=== PATIENT | female | born 1960 | race Caucasian/White ===

== ENCOUNTER 2016-05-25 15:53 | Inpatient (IN) | payer OTHER ==
[~2016-05-25] VITALS: Ht 165.1 cm; Wt 88.6 kg
[~2016-05-25 15:53] MED LIST: AMBI10TA; CYCL-36; TRAM50; WARF7.5; Z.0.NO CURRENT MEDS
[2016-05-25 15:54] VITALS: BP 170/105; PULSE 124; RESP 20; TEMP 98.2; O2SAT 94
[2016-05-25] MEDS ORDERED: MORPHINE SULFATE 4 MG/ML INJ IV PUSH ONE (19:30)
[2016-05-25] MEDS ORDERED: ONDANSETRON HCL 4 MG/2 ML VIAL IV PUSH ONE (19:30)
[2016-05-25 19:36] VITALS: O2SAT 96
[2016-05-25] MEDS ORDERED: TIZA4 PO (19:36)
[2016-05-25] MEDS ORDERED: PERC10TA27 PO (19:36)
[2016-05-25] MEDS ORDERED: ALPR.25 PO (19:36)
[2016-05-25] MEDS ORDERED: AMLO5 PO (19:36)
[2016-05-25] MEDS ORDERED: AMBI10TA PO (19:36)
--- NOTE | 2016-05-25 19:48 | PD ---
HPI Chief Complaint: Skin Problem Time Seen by Provider: 19:19 Travel History International Travel<30 days: No Contact w/Intl Traveler<30days: No Traveled to known affect area: No History of Present Illness HPI 56-year-old female complains of left shoulder pain. Patient started having left shoulder pain in the April. Patient was seen by personal physician and was diagnosed with osteoarthritis of the left A-C joint, shoulder impingement and rotator cuff tendinitis. Patient was seen by local physician Dr. Almazan and given Kenalog injection to left A-C joint on April 29. Patient states that he started having increasing pain and swelling to left shoulder since then. Patient was seen by personal physician and had MRI and x-ray done of the left shoulder which shows arthritic change. Patient was given pain medication and antibiotic including Augmentin and Medrol Dosepak. Patient states that she has low-grade fever at home up to 100.5. Patient was seen by personal physician again and referred to the ED to see Dr. Enriquez orthopedist consultation. Patient status post hip surgery by Dr. betts and knee surgery by Dr. Pitt in the past. Patient has history of hypertension and on medication for that. Patient stopped smoking a few months ago. Patient states the pain is severe sharp pain localized to left shoulder. Patient denies any pain radiation. Patient states that the pain is worse with left shoulder movement. On a scale of 1-10 the pain is a 10. PFSH Past Medical History Diminished Hearing: No Hypertension: Yes Influenza Vaccination: Yes ?: Not Social History Alcohol Use: Yes (rarely ) Tobacco Use: No Substance Use: No Allergies-Medications (Allergen,Severity, Reaction): Coded Allergies: Lortab (Verified Allergy, Mild, NAUSEA, 05/25/16) Percocet (Verified Allergy, Mild, HYPER AND ANXIOUS, 05/25/16) Reported Meds & Prescriptions Reported Meds & Active Scripts Active Reported Percocet (Oxycodone-Acetaminophen) 10-325 mg Tab 1 Tab PO Q4H PRN Zanaflex (Tizanidine HCl) 4 Mg Tab 4 Mg PO TID Xanax (Alprazolam) 0.25 Mg Tab 0.25 Mg PO Q4H PRN Norvasc (Amlodipine Besylate) 5 Mg Tab 5 Mg PO BID Ambien (Zolpidem Tartrate) 10 Mg Tab 10 Mg PO HS PRN Review of Systems General / Constitutional: No: Fever Eyes: No: Visual changes HENT: No: Headaches Cardiovascular: No: Chest Pain or Discomfort Respiratory: No: Shortness of Breath Gastrointestinal: No: Abdominal Pain Genitourinary: No: Dysuria Musculoskeletal: Positive: Pain Skin: No Rash Neurologic: No: Weakness Psychiatric: No: Depression Endocrine: No: Polydipsia Hematologic/Lymphatic: No: Easy Bruising Physical Exam Narrative GENERAL: Well-nourished, well-developed patient. SKIN: Warm and dry. HEAD: Normocephalic. EYES: No scleral icterus. No injection or drainage. NECK: Supple, trachea midline. No JVD or lymphadenopathy. CARDIOVASCULAR: Regular rate and rhythm without murmurs, gallops, or rubs. RESPIRATORY: Breath sounds equal bilaterally. No accessory muscle use. GASTROINTESTINAL: Abdomen soft, non-tender, nondistended. MUSCULOSKELETAL: No cyanosis, or edema. BACK: Nontender without obvious deformity. No CVA tenderness. Diffuse soft tissue swelling tenderness left shoulder joint especially superior aspect the left shoulder joint. Mild redness noted. No induration noted. Sensorimotor distally intact. Very Limited range of motion left shoulder secondary to pain. Data Data Last Documented VS Vital Signs Date Time Temp Pulse Resp B/P Pulse Ox O2 Delivery O2 Flow Rate FiO2 05/25/16 20:28 18 05/25/16 19:36 96 Room Air 05/25/16 15:54 98.2 124 170/105 Orders Electrocardiogram (05/25/16 19:28) Complete Blood Count With Diff (05/25/16 19:28) Comprehensive Metabolic Panel (05/25/16 19:28) Prothrombin Time / Inr (Pt) (05/25/16 19:28) Act Partial Throm Time (Ptt) (05/25/16 19:28) Blood Culture (05/25/16 19:28) C-Reactive Protein (Crp) (05/25/16 19:28) Urinalysis - C+S If Indicated (05/25/16 19:28) Westergren Sedimentation Rate (05/25/16 19:28) Chest, Single Ap (05/25/16 19:28) Iv Access Insert/Monitor (05/25/16 19:28) Ecg Monitoring (05/25/16 19:28) Oximetry (05/25/16 19:28) Morphine Inj (Morphine Inj) (05/25/16 19:30) Ondansetron Inj (Zofran Inj) (05/25/16 19:30) Sodium Chlor 0.9% 1000 Ml Inj (Ns 1000 M (05/25/16 19:30) Mri Joint Shoulder W&W/O Contr (05/25/16 ) Labs Laboratory Tests Test 05/25/16 19:30 White Blood Count 14.6 TH/MM3 Red Blood Count 4.78 MIL/MM3 Hemoglobin 14.2 GM/DL Hematocrit 42.7 % Mean Corpuscular Volume 89.4 FL Mean Corpuscular Hemoglobin 29.8 PG Mean Corpuscular Hemoglobin 33.3 % Concent Red Cell Distribution Width 13.4 % Platelet Count 283 TH/MM3 Mean Platelet Volume 7.4 FL Neutrophils (%) (Auto) 71.1 % Lymphocytes (%) (Auto) 22.5 % Monocytes (%) (Auto) 5.2 % Eosinophils (%) (Auto) 0.7 % Basophils (%) (Auto) 0.5 % Neutrophils # (Auto) 10.4 TH/MM3 Lymphocytes # (Auto) 3.3 TH/MM3 Monocytes # (Auto) 0.8 TH/MM3 Eosinophils # (Auto) 0.1 TH/MM3 Basophils # (Auto) 0.1 TH/MM3 CBC Comment DIFF FINAL Differential Comment Erythrocyte Sedimentation Rate 33 mm/hr Prothrombin Time 10.8 SEC Prothromb Time International 1.0 RATIO Ratio Activated Partial 24.8 SEC Thromboplast Time Sodium Level 136 MEQ/L Potassium Level 3.7 MEQ/L Chloride Level 99 MEQ/L Carbon Dioxide Level 28.2 MEQ/L Anion Gap 9 MEQ/L Blood Urea Nitrogen 17 MG/DL Creatinine 0.74 MG/DL Estimat Glomerular Filtration 81 ML/MIN Rate Random Glucose 128 MG/DL Calcium Level 8.7 MG/DL Total Bilirubin 0.6 MG/DL Aspartate Amino Transf 20 U/L (AST/SGOT) Alanine Aminotransferase 51 U/L (ALT/SGPT) Alkaline Phosphatase 81 U/L C-Reactive Protein 2.10 MG/DL Total Protein 7.7 GM/DL Albumin 3.1 GM/DL MDM Medical Decision Making Medical Screen Exam Complete: Yes Emergency Medical Condition: Yes Interpretation(s) 21:16 PM. CBC WBC 14.6. Sedimentation rate 33. CMP within normal limit. C- reactive protein 2.10. Differential Diagnosis Differential diagnosis including cellulitis, abscess, septic joint Narrative Course 56-year-old female with severe left shoulder pain. Status post steroid injection left A-C joint April 29. Vancomycin 1 g IV given. Montrell Quesada MD May 25, 2016 19:48
[2016-05-25] MEDS: SODIUM CHLOR 0.9% 1000 ML INJ 1,000 ML IV SCH (20:00)
[2016-05-25 20:06] LABS: AUTOMATED NEUTROPHIL # 10.4 TH/MM3 (1.8-7.7); BASOPHIL # 0.1 TH/MM3 (0-0.2); BASOPHIL % 0.5 % (0.0-2.0); EOSINOPHIL # 0.1 TH/MM3 (0-0.4); EOSINOPHIL % 0.7 % (0.0-4.0); HEMATOCRIT 42.7 % (35.0-46.0); HEMO FLAGS DIFF FINAL; LYMPH % 22.5 % (9.0-44.0); LYMPHOCYTE # 3.3 TH/MM3 (1.0-4.8); MEAN CELL VOLUME 89.4 FL (80.0-100.0); MEAN CORPUSCULAR HEMOGLOBIN 29.8 PG (27.0-34.0); MEAN CORPUSCULAR HGB CONC 33.3 % (32.0-36.0); MONO % 5.2 % (0.0-8.0); NEUT % 71.1 % (16.0-70.0); PLATELET COUNT 283 TH/MM3 (150-450); RED BLOOD COUNT 4.78 MIL/MM3 (4.00-5.30); RED CELL DISTRIBUTION WIDTH 13.4 % (11.6-17.2); WHITE BLOOD COUNT 14.6 TH/MM3 (4.0-11.0)
[2016-05-25 20:23] LABS: ALKALINE PHOSPHATASE 81 U/L (45-117); ALT (GPT) 51 U/L (10-53); ANION GAP 9 MEQ/L (5-15); AST (GOT) 20 U/L (15-37); BICARBONATE 28.2 MEQ/L (21.0-32.0); BLOOD UREA NITROGEN 17 MG/DL (7-18); CHLORIDE 99 MEQ/L (98-107); GLOMERULAR FILTRATION RATE 81 ML/MIN (>89); POTASSIUM 3.7 MEQ/L (3.5-5.1); SODIUM (NA) 136 MEQ/L (136-145); TOTAL BILIRUBIN ADULT 0.6 MG/DL (0.2-1.0)
[2016-05-25 20:25] LABS: APTT (PATIENT) 24.8 SEC (24.3-30.1); PROTHROMBIN TIME - PATIENT 10.8 SEC (9.8-11.6)
[2016-05-25] MEDS ORDERED: VANCOMYCIN INJ 1,000 MG in SODIUM CHLOR 0.9% 250 ML INJ 250 ML IV ONE (21:30)
[2016-05-25] MEDS ORDERED: SODIUM CHLORIDE 0.9% FLUSH 5 ML FLUSH IVF PRN (21:30)
--- NOTE | 2016-05-25 21:33 | RADRPT ---
EXAM DATE/TIME: 05/25/2016 19:40 [facility] COMPARISON: No previous studies available for comparison. INDICATIONS : Short of breath MEDICAL HISTORY : None. SURGICAL HISTORY : None. ENCOUNTER: Initial ACUITY: 1 day PAIN SCORE: 0/10 LOCATION: Bilateral chest FINDINGS: A single view of the chest demonstrates the lungs to be symmetrically aerated without evidence of mas s, infiltrate or effusion. The cardiomediastinal contours are unremarkable. Osseous structures are intact. CONCLUSION: Normal examination for a patient of this age. Amrik Burkett MD on May 25, 2016 at 21:31 Board Certified Radiologist. This report was verified electronically.
--- NOTE | 2016-05-25 21:35 | HHI.HP ---
HPI Service [facility] Hospitalists Primary Care Physician Yamil Felix, DO Admission Diagnosis left shoulder cellulitis. Rule out septic joint. Chief Complaint: Left shoulder pain with questionable infection Travel History International Travel<30 Days: No Contact w/Intl Traveler <30 Da: No Traveled to Known Affected Are: No History of Present Illness 56-year-old female complains of left shoulder pain. Patient started having left shoulder pain in the April 2016. Patient was seen by personal physician and was diagnosed with osteoarthritis of the left A-C joint, shoulder impingement and rotator cuff tendinitis. She was reportedly given injection into left AC joint by Dr Lee at [facility] on 04/29/16. Patient was seen by local sports medicine physician Dr. Almazan and given Kenalog injection to post left shoulder on May 07, 2016. Patient was seen by personal physician and had MRI and x-ray done of the left shoulder which mistreated before meals osteoarthritis and possible biceps tenosynovitis on May 06, 2016. Patient was given pain medication and antibiotic including Augmentin and Medrol Dosepak. Patient states that she has low-grade fever at home up to 100.5 over the last 2 days.. Patient was seen by personal physician again and referred to the ED to see Dr. Enriquez orthopedist consultation for possible septic joint. Patient states the pain is severe sharp pain localized to left shoulder. Patient denies any pain radiation. Patient states that the pain is worse with left shoulder movement. On a scale of 1-10 the pain is a 10. Denies chest pain or shortness of breath. Review of Systems Constitutional: COMPLAINS OF: Fatigue, Fever Endocrine: DENIES: Abnorml menstrual pattern, Heat/cold intolerance, Polydipsia , Polyuria, Polyphagia Eyes: DENIES: Blurred vision, Diplopia, Eye inflammation, Eye pain, Vision loss , Photosensitivity, Double Vision Ears, nose, mouth, throat: DENIES: Tinnitus, Hearing loss, Vertigo, Nasal discharge, Oral lesions, Throat pain, Hoarseness, Ear Pain, Running Nose, Epistaxis, Sinus Pain, Toothache, Odynophagia Respiratory: DENIES: Apneas, Cough, Snoring, Wheezing, Hemoptysis, Sputum production, Shortness of breath Cardiovascular: DENIES: Chest pain, Palpitations, Syncope, Dyspnea on Exertion , PND, Lower Extremity Edema, Orthopnea, Claudication Gastrointestinal: DENIES: Abdominal pain, Black stools, Bloody stools, BRB per rectum, Constipation, Diarrhea, GERD, Nausea, Reflux, Vomiting, Difficulty Swallowing, Anorexia, See HPI Musculoskeletal: COMPLAINS OF: Joint pain, Stiffness Hematologic/lymphatic: DENIES: Bruising, Lymphadenopathy Immunologic/allergic: DENIES: Eczema, Urticaria Neurologic: DENIES: Abnormal gait, Headache, Localized weakness, Paresthesias, Seizures, Speech Problems, Tremor, Poor Balance Psychiatric: COMPLAINS OF: Anxiety Past Family Social History Past Medical History Anxiety Cervical degenerative disc disease Hypertension Osteoarthritis of the acromioclavicular joints Rotator cuff tendinitis on the left Past Surgical History Left knee arthroscopy Right total hip replacement Reported Medications Percocet (Oxycodone-Acetaminophen) 10-325 mg Tab 1 Tab PO Q4H PRN Zanaflex (Tizanidine HCl) 4 Mg Tab 4 Mg PO TID Xanax (Alprazolam) 0.25 Mg Tab 0.25 Mg PO Q4H PRN Norvasc (Amlodipine Besylate) 5 Mg Tab 5 Mg PO BID Ambien (Zolpidem Tartrate) 10 Mg Tab 10 Mg PO HS PRN Allergies: Coded Allergies: Lortab (Verified Allergy, Mild, NAUSEA, 05/25/16) Percocet (Verified Allergy, Mild, HYPER AND ANXIOUS, 05/25/16) Family History Noncontributory Social History No tobacco in 8 mos, prior to that smoked cigarettes for appx 35 yrs. Occasional EtOH use. 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 Has been in area for over 20 yrs. Physical Exam Vital Signs Vital Signs Date Time Temp Pulse Resp B/P Pulse Ox O2 Delivery O2 Flow Rate FiO2 05/25/16 20:28 18 05/25/16 19:36 96 Room Air 05/25/16 15:54 98.2 124 20 170/105 94 Room Air Physical Exam GENERAL: This is a well-nourished, obese, well-developed patient, in no apparent distress. SKIN: Left shoulder dorsally with erythematous patch with edema and TTP. HEAD: Atraumatic. Normocephalic. No temporal or scalp tenderness. EYES: Pupils equal round and reactive. Extraocular motions intact. No scleral icterus. No injection or drainage. ENT: Nose without bleeding, purulent drainage or septal hematoma. Throat without erythema, tonsillar hypertrophy or exudate. Uvula midline. Airway patent. NECK: Trachea midline. No JVD or lymphadenopathy. Spasm left paracervical area. CARDIOVASCULAR: Regular rate and rhythm without murmurs, gallops, or rubs. RESPIRATORY: Clear to auscultation. Breath sounds equal bilaterally. No wheezes , rales, or rhonchi. GASTROINTESTINAL: Abdomen soft, non-tender, nondistended. No hepato-splenomegaly , or palpable masses. No guarding. MUSCULOSKELETAL: Extremities without clubbing, cyanosis. Left shoulder with + apprehension test and TTP over left AC joint. TTP left proximal biceps with posterior edema. Decreased ROM left shoulder due to edema/pain. Could not perform lift off test due to pain with internal rotation. No calf tenderness.. NEUROLOGICAL: Awake and alert. Cranial nerves II through XII intact. Motor and sensory grossly within normal limits. Five out of 5 muscle strength in all muscle groups. Normal speech. Laboratory Laboratory Tests Test 05/25/16 19:30 White Blood Count 14.6 Red Blood Count 4.78 Hemoglobin 14.2 Hematocrit 42.7 Mean Corpuscular Volume 89.4 Mean Corpuscular Hemoglobin 29.8 Mean Corpuscular Hemoglobin 33.3 Concent Red Cell Distribution Width 13.4 Platelet Count 283 Mean Platelet Volume 7.4 Neutrophils (%) (Auto) 71.1 Lymphocytes (%) (Auto) 22.5 Monocytes (%) (Auto) 5.2 Eosinophils (%) (Auto) 0.7 Basophils (%) (Auto) 0.5 Neutrophils # (Auto) 10.4 Lymphocytes # (Auto) 3.3 Monocytes # (Auto) 0.8 Eosinophils # (Auto) 0.1 Basophils # (Auto) 0.1 CBC Comment DIFF FINAL Differential Comment Erythrocyte Sedimentation Rate 33 Prothrombin Time 10.8 Prothromb Time International 1.0 Ratio Activated Partial 24.8 Thromboplast Time Sodium Level 136 Potassium Level 3.7 Chloride Level 99 Carbon Dioxide Level 28.2 Anion Gap 9 Blood Urea Nitrogen 17 Creatinine 0.74 Estimat Glomerular Filtration 81 Rate Random Glucose 128 Calcium Level 8.7 Total Bilirubin 0.6 Aspartate Amino Transf 20 (AST/SGOT) Alanine Aminotransferase 51 (ALT/SGPT) Alkaline Phosphatase 81 C-Reactive Protein 2.10 Total Protein 7.7 Albumin 3.1 Date/Time Procedure Status Source Growth 05/25/16 19:38 Aerobic Blood Culture Received Blood Peripheral Pending 05/25/16 19:38 Anaerobic Blood Culture Received Blood Peripheral Pending Result Diagram: 05/25/16192905/25/161929 Imaging Last 72 hours Impressions Chest X-Ray 05/25/161927 Signed Impressions: Service Date/Time: Wednesday, May 25, 2016 19:40 - CONCLUSION: Normal examination for a patient of this age. Amrik Burkett MD Assessment and Plan Problem List: (1) Acromioclavicular joint arthritis Status: Acute Plan: Will have ortho see pt. May have septic joint/bursa. Given abx and pain rx. MRI pending. (2) Cellulitis Status: Acute Plan: abx given. Will follow. Does not appear toxic. Sed rate noted. (3) Hypertension Status: Chronic Plan: continue rx. Clonidine prn. (4) Anxiety Status: Chronic Plan: xanax prn Code Status full Discussed Condition With patient, Dr Quesada Physician Certification 2 Midnight Certification Type: Admission for Inpatient Services Order for Inpatient Services The services are ordered in accordance with Medicare regulations or non- Medicare payer requirements, as applicable. In the case of services not specified as inpatient-only, they are appropriately provided as inpatient services in accordance with the 2-midnight benchmark. Estimated LOS (days): 2 days is the estimated time the patient will need to remain in the hospital, assuming treatment plan goals are met and no additional complications. Post-Hospital Plan: Home Chencho Marti PhD May 25, 2016 21:35
[2016-05-25] MEDS ORDERED: cloNIDine HCL 0.1 MG TAB PO PRN (21:45)
[2016-05-25] MEDS ORDERED: ONDANSETRON HCL 4 MG/2 ML VIAL IV PUSH PRN (21:45)
[2016-05-25] MEDS ORDERED: ALPRAZolam 0.25 MG TAB PO PRN (21:45)
[2016-05-25] MEDS ORDERED: GADODIAMIDE PF 287 MG/ML 20 ML VIAL (for RAD MRI) IV PUSH ONE (22:14)
--- NOTE | 2016-05-25 23:18 | RADRPT ---
EXAM DATE/TIME: 05/25/2016 21:58 [facility] COMPARISON: No previous studies available for comparison. INDICATIONS : Abscess. Status post left a.c. joint steroid injection on April 29. CONTRAST: 18 cc Omniscan (gadodiamide) IV MEDICAL HISTORY : Kenlog injections into left shoulder SURGICAL HISTORY : Total knee replacement, left. Right hip replacment. ENCOUNTER: Initial ACUITY: 1 month PAIN SCORE: 9/10 LOCATION: Left anterior shoulder TECHNIQUE: Multiplanar, multisequence MRI examination was performed with and without contrast. FINDINGS: There is good alignment of the bony structures of the shoulder joint. There is normal signal intensit y within the bone marrow of the proximal humerus and scapula. Degenerative changes are seen at the a. c. joint. However, multiple too numerous to count fluid collections are seen throughout the soft tiss ues that surround the shoulder joint characteristics of soft tissue abscesses. There is an abscess ju st superior to the a.c. joint measuring 3.5 cm. There is an abscess in the subscapularis muscle measu ring 2.8 cm. There appears to be a large fluid collection/abscess in the soft tissues posterior to th e shoulder measuring 15.1 cm in length. Multiple small abscesses appear to be along the left chest wa ll at the level of the axilla. There is no evidence of bone marrow edema in the bony structures to prasad ggest osteomyelitis. No significant joint effusion is demonstrated. The rotator cuff appears to be gr ossly intact. CONCLUSION: 1. Multiple too numerous to count soft tissue abscesses are seen in the soft tissues that surround th e shoulder joint. The largest abscess appears to be positioned posterior to the shoulder and scapula in the soft tissues measuring at least 15.1 cm in length. 2. Multiple small abscesses are also seen along the left chest wall at the level of the axilla extend ing inferiorly. 3. No evidence of osteomyelitis is demonstrated at this time. Mark Anthony Mar MD on May 25, 2016 at 23:06 Board Certified Radiologist. This report was verified electronically.
[2016-05-25 23:47] VITALS: BP 167/80; PULSE 110; RESP 18; O2SAT 99
[2016-05-26] LABS: BACTERIA, URINE RARE /hpf; BLOOD, URINE TRACE (NEG); COMMENT (UR) CULT NOT INDICATED; CULTURE IF INDICATED CULT NOT INDICATED; GLUCOSE,URINE NEG (NEG); HYALINE CAST, URINE 2 /lpf (RARE); KETONE, URINE NEG (NEG); MUCUS URINE MANY /lpf (OCC); NITRITE,URINE NEG (NEG); SQUAMOUS EPITHELIAL CELL URINE 4 /hpf (0-5); URINE COLOR YELLOW (YELLW/STRAW)
[2016-05-26 02:06] VITALS: BP 152/75; PULSE 88; RESP 18; O2SAT 99
[2016-05-26] MEDS: MORPHINE SULFATE 4 MG/ML INJ IV PUSH PRN ×2 (02:52→09:33)
[2016-05-26] MEDS: ZOLPIDEM TARTRATE 10 MG TAB PO PRN ×2 (03:00→19:58)
[2016-05-26] MEDS: SODIUM CHLOR 0.9% 1000 ML INJ 1,000 ML IV SCH ×4 (03:30→19:59)
[2016-05-26 05:40] LABS: AUTOMATED NEUTROPHIL # 7.2 TH/MM3 (1.8-7.7); BASOPHIL % 0.2 % (0.0-2.0); EOSINOPHIL # 0.2 TH/MM3 (0-0.4); EOSINOPHIL % 1.6 % (0.0-4.0); HEMATOCRIT 36.3 % (35.0-46.0); HEMO FLAGS DIFF FINAL; LYMPH % 26.6 % (9.0-44.0); LYMPHOCYTE # 2.9 TH/MM3 (1.0-4.8); MEAN CELL VOLUME 89.5 FL (80.0-100.0); MEAN CORPUSCULAR HEMOGLOBIN 30.8 PG (27.0-34.0); MEAN CORPUSCULAR HGB CONC 34.4 % (32.0-36.0); NEUT % 66.6 % (16.0-70.0); PLATELET COUNT 229 TH/MM3 (150-450); RED BLOOD COUNT 4.05 MIL/MM3 (4.00-5.30); RED CELL DISTRIBUTION WIDTH 13.6 % (11.6-17.2); WHITE BLOOD COUNT 10.8 TH/MM3 (4.0-11.0)
[2016-05-26 07:33] VITALS: BP 143/77; PULSE 98; RESP 20; O2SAT 92
[2016-05-26] MEDS ORDERED: SODIUM CHLORIDE 0.9% FLUSH 5 ML FLUSH IVF SCH (09:00)
[2016-05-26 09:29] VITALS: BP 146/83; PULSE 105; RESP 20; O2SAT 95
[2016-05-26] MEDS: amLODIPine BESYLATE 5 MG TAB PO SCH ×2 (09:33→19:59)
[2016-05-26] MEDS ORDERED: VANCOMYCIN INJ 1,000 MG in SODIUM CHLOR 0.9% 250 ML INJ 250 ML IV SCH (11:00)
[2016-05-26] MEDS ORDERED: Vancomycin Consult Pharmacy 1 EA OTHER SCH (11:00)
--- NOTE | 2016-05-26 11:04 | HHI.PR ---
Subjective Remarks no distress Objective Vitals nad heart reg lung cta abd s/nt ext no edema Vital Signs Date Time Temp Pulse Resp B/P Pulse Ox O2 Delivery O2 Flow Rate FiO2 05/26/16 09:29 105 20 146/83 95 Room Air 05/26/16 07:33 98 20 143/77 92 05/26/16 03:33 18 05/26/16 02:06 88 18 152/75 99 Room Air 05/25/16 23:47 110 18 167/80 99 Room Air 05/25/16 20:28 18 05/25/16 19:36 96 Room Air 05/25/16 15:54 98.2 124 20 170/105 94 Room Air Result Diagram: 05/26/16 0500 05/25/16 1930 Other Results Laboratory Tests Test 05/25/16 05/25/16 05/26/16 00:40 19:30 05:00 Urine Color YELLOW Urine Turbidity HAZY Urine pH 5.0 Urine Specific [place] 1.031 Urine Protein 100 mg/dL Urine Glucose (UA) NEG mg/dL Urine Ketones NEG mg/dL Urine Occult Blood TRACE Urine Nitrite NEG Urine Bilirubin NEG Urine Urobilinogen LESS THAN 2.0 MG/DL Urine Leukocyte Esterase NEG Urine RBC 3 /hpf Urine WBC 5 /hpf Urine Squamous Epithelial 4 /hpf Cells Urine Amorphous Sediment RARE Urine Bacteria RARE /hpf Urine Hyaline Casts 2 /lpf Urine Mucus MANY /lpf Microscopic Urinalysis Comment CULT NOT INDICATED White Blood Count 14.6 TH/MM3 10.8 TH/MM3 Red Blood Count 4.78 MIL/MM3 4.05 MIL/MM3 Hemoglobin 14.2 GM/DL 12.5 GM/DL Hematocrit 42.7 % 36.3 % Mean Corpuscular Volume 89.4 FL 89.5 FL Mean Corpuscular Hemoglobin 29.8 PG 30.8 PG Mean Corpuscular Hemoglobin 33.3 % 34.4 % Concent Red Cell Distribution Width 13.4 % 13.6 % Platelet Count 283 TH/MM3 229 TH/MM3 Mean Platelet Volume 7.4 FL 7.7 FL Neutrophils (%) (Auto) 71.1 % 66.6 % Lymphocytes (%) (Auto) 22.5 % 26.6 % Monocytes (%) (Auto) 5.2 % 5.0 % Eosinophils (%) (Auto) 0.7 % 1.6 % Basophils (%) (Auto) 0.5 % 0.2 % Neutrophils # (Auto) 10.4 TH/MM3 7.2 TH/MM3 Lymphocytes # (Auto) 3.3 TH/MM3 2.9 TH/MM3 Monocytes # (Auto) 0.8 TH/MM3 0.5 TH/MM3 Eosinophils # (Auto) 0.1 TH/MM3 0.2 TH/MM3 Basophils # (Auto) 0.1 TH/MM3 0.0 TH/MM3 CBC Comment DIFF FINAL DIFF FINAL Differential Comment Erythrocyte Sedimentation Rate 33 mm/hr Prothrombin Time 10.8 SEC Prothromb Time International 1.0 RATIO Ratio Activated Partial 24.8 SEC Thromboplast Time Sodium Level 136 MEQ/L Potassium Level 3.7 MEQ/L Chloride Level 99 MEQ/L Carbon Dioxide Level 28.2 MEQ/L Anion Gap 9 MEQ/L Blood Urea Nitrogen 17 MG/DL Creatinine 0.74 MG/DL Estimat Glomerular Filtration 81 ML/MIN Rate Random Glucose 128 MG/DL Calcium Level 8.7 MG/DL Total Bilirubin 0.6 MG/DL Aspartate Amino Transf 20 U/L (AST/SGOT) Alanine Aminotransferase 51 U/L (ALT/SGPT) Alkaline Phosphatase 81 U/L C-Reactive Protein 2.10 MG/DL Total Protein 7.7 GM/DL Albumin 3.1 GM/DL Imaging Last Impressions Chest X-Ray 05/25/161927 Signed Impressions: Service Date/Time: Wednesday, May 25, 2016 19:40 - CONCLUSION: Normal examination for a patient of this age. Amrik Burkett MD Shoulder MRI 05/25/16 0000 Signed Impressions: Service Date/Time: Wednesday, May 25, 2016 21:58 - CONCLUSION: 1. Multiple too numerous to count soft tissue abscesses are seen in the soft tissues that surround the shoulder joint. The largest abscess appears to be positioned posterior to the shoulder and scapula in the soft tissues measuring at least 15.1 cm in length. 2. Multiple small abscesses are also seen along the left chest wall at the level of the axilla extending inferiorly. 3. No evidence of osteomyelitis is demonstrated at this time. Mark Anthony Mar MD Last 72 hours Impressions Chest X-Ray 05/25/161927 Signed Impressions: Service Date/Time: Wednesday, May 25, 2016 19:40 - CONCLUSION: Normal examination for a patient of this age. Amrik Burkett MD A/P Problem List: (1) Cellulitis Status: Acute Plan: - Pt has been having issues left shoulder pain in the April 2016. - Patient was diagnosed with osteoarthritis of the left A-C joint, shoulder impingement and rotator cuff tendinitis. - She was reportedly given injection into left AC joint by Dr Lee at [facility] on 04/29/16. - Patient was seen by local sports medicine physician Dr. Almazan and given Kenalog injection to post left shoulder on May 07, 2016. - Patient was seen by her PCP and had MRI without contrast of the left shoulder on 05/06/16 which noted degenerative changes at the AC jointm questionable mild biceps tenosynovitis - Patient was given pain medication and antibiotic including Augmentin and Medrol Dosepak. - She has had low-grade fever at home up to 100.5 over the last 2 days - MRI Left shoulder (05/26) --> Multiple too numerous to count soft tissue abscesses are seen in the soft tissues that surround the shoulder joint. The largest abscess appears to be positioned posterior to the shoulder and scapula in the soft tissues measuring at least 15.1 cm in length. Multiple small abscesses are also seen along the left chest wall at the level of the axilla extending inferiorly. No evidence of osteomyelitis is demonstrated at this time. - Pt was given Vancomycin in the ER and this will be continued - Orthopedic surgery has been consulted. - No fever since admission. WBC count stable. - Pt with an elevated ESR of 33 - Will discuss with IR whether or not any of these fluid collections can be drained by IR or not. - DVT prophylaxis (2) Hypertension Status: Chronic Plan: - Home meds continued - Clonidine prn. (3) Anxiety Status: Chronic Plan: - Xanax prn Assessment and Plan Patient examined. Assessment and plan formulated with Kate Estes PA-C. I agree with the above. left shoulder with abscesses. probably related to repeated injections. going to OR today for drainage. f/u cx. cont abx. Kate Estes May 26, 2016 11:04 Aden Finley MD May 26, 2016 21:54
[2016-05-26] MEDS ORDERED: ceFAZolin 2 GM PREMIX 50 ML ONE (12:26)
[2016-05-26] MEDS ORDERED: GENTAMICIN SULFATE 80 MG/2 ML VIAL ONE (12:27)
[2016-05-26] MEDS ORDERED: NEOSTIGMINE 3 MG/3 ML SYR IV ONE (13:00)
[2016-05-26] MEDS ORDERED: PROPOFOL 200 MG/20 ML AMP IV ONE (13:00)
[2016-05-26] MEDS ORDERED: ePHEDrine/NS 50 MG/5 ML SYR IV ONE (13:00)
[2016-05-26] MEDS ORDERED: ONDANSETRON HCL 4 MG/2 ML VIAL IV PUSH ONE (13:00)
[2016-05-26] MEDS ORDERED: DEXAMETHASONE SOD PHOS 4 MG/ML VIAL ONE (13:05)
[2016-05-26] MEDS ORDERED: MIDAZOLAM HCL 2 MG/2 ML VIAL ONE (13:05)
[2016-05-26] MEDS ORDERED: fentaNYL CITRATE 250 MCG/5 ML AMP ONE ×2 (13:40→15:58)
[2016-05-26] MEDS ORDERED: ACETAMINOPHEN 1000 MG/100 ML VIAL IV ONE (13:40)
[2016-05-26] MEDS: VANCOMYCIN INJ 1,500 MG in SODIUM CHLORID 0.9% 500 ML INJ 500 ML IV SCH (15:04)
[2016-05-26] MEDS ORDERED: Post-op Orders (for Pharmacy) MISC XX ONE (15:30)
[2016-05-26] MEDS ORDERED: diphenhydrAMINE HCL 25 MG CAP PO PRN (15:30)
[2016-05-26] MEDS ORDERED: SODIUM CHLORIDE 0.9% FLUSH 5 ML FLUSH IVF PRN (15:30)
[2016-05-26] MEDS ORDERED: DO NOT ADM ANY ANTICOAGULANT DRUGS XX PRN (15:49)
[2016-05-26] MEDS ORDERED: *morphine SULFATE 8 MG/ML PERIprocedure ONLY ONE ×2 (16:05→16:20)
[2016-05-26] MEDS ORDERED: *RESP: ALBUTEROL 2.5 MG/3 ML NEB (PRN) PERIprocedural Use ONLY NEB ONE (16:07)
--- NOTE | 2016-05-26 17:04 | MB ---
cc: GREGJAMIL DATE OF CONSULTATION: 05/26/2016 REASON FOR CONSULTATION: 1. Left shoulder AC joint infection. 2. Left shoulder abscess. CONSULTING PHYSICIAN Dr. Aden Finley. HISTORY Sarah is a 56-year-old female who presented emergency room complaining of left shoulder pain. She began developing pain in April 2016. She was felt to have left shoulder AC joint arthritis and shoulder impingement. She was given a left shoulder AC joint injection at [facility] on 04/29/2016. She also had a steroid injection of her posterior shoulder around May 07, 2016. She had she presented emergency room with fevers, increased pain. MRI was done revealing a large abscess of the posterior shoulder. She also had an abscess around the left AC joint. She is currently awake and emergency department. Only complaints are her left shoulder. Pain is worse with movement and is improved with rest. She denies any falls traumatic injuries. PAST MEDICAL HISTORY/ILLNESSES 1. Degenerative disc disease 2. Hypertension. 3. Osteoarthritis. 4. Rotator cuff tendonitis. SURGERIES 1. Right total hip arthroplasty 2. Left antroscopy MEDICATIONS 1. Percocet flexes annex. 2. Norvasc and median allergies would have a Percocet. SOCIAL HISTORY The patient quit smoking a year. It is a month ago. She drinks alcohol occasionally. She works to the [employer]. REVIEW OF SYSTEMS The patient denies headache, visual changes. Chest pain, abdominal pain, nausea or recent weight loss or numbness and extremities. She has moderate fevers. She complains of left shoulder pain. She has chronic neck pain. PHYSICAL EXAMINATION The patient has a well-developed, well-nourished 48-year female who is moderately overweight. She is awake, alert. She is alert and x3. Vital signs: Temperature 98.2, pulse 105, respirations 20, blood pressure 146/83, O2 sat 95% on room air. HEAD, EYES, EARS, NOSE, AND THROAT: Head: The patient is normocephalic. Pupils are equal. NECK: Soft, nontender. Trachea is midline. ABDOMEN: Soft, nontender, nondistended. EXTREMITIES: Examination of left arm reveals significant swelling around the posterior shoulder. There is a flexion area along the posterior scapula. She is very tender progression over the AC joint. She has pain with any shoulder motion. She has no pain with elbow or wrist or hand motion. Skin is intact. Radial arteries, pulse palpable. Sensation is intact to radial and median nerves. The patient's she has good cap refill fingers. Examination of right arm reveals no pain with shoulder or wrist motion. She has intact sensation in all fingers. She has good cap refill fingers. Skin is intact. Reporting Specialist strength. EXTREMITIES: Examination of bilateral lower extremities reveals no pain with hip, knee or ankle motion. SKIN: Skin is intact. Dorsalis pedis pulses palpable. Sensation is grossly intact both feet. MRI of left shoulder was reviewed. The patient has a large area of fluid along the posterior scapula. This appears to be consistent with an abscess. She also has a fluid section of the AC joint consistent with a she joint infection. IMPRESSION 1. Posterior left shoulder abscess. 2. Left shoulder AC joint infection. PLAN The option discussed with the patient this point I would recommend left AC joint. The arthrotomy with irrigation debridement. Also recommend irrigation debridement of the posterior scapular abscess. Risks of surgery include bleeding, infection, injury to his blood vessels, recurrent infection, need for further surgery as well as medical complications including blood clot, stroke, heart attack and . She understands that she can have weakness or numbness of her hand. I will plan on surgery today. A mid-level provider in my office (nurse practitioner or physician administrative assistant office manager) may see this patient on follow-up visits and continue to implement the objectives of this plan including: Starting or adjusting medications, injections , cast application, orthotics, brace application, physical therapy, radiological studies (including x-ray, MRI, CT, ultrasound, bone scan), vascular studies, neurologic studies, specialist consultation, and proceeding with surgical management, as appropriate. MD MINA Bustamante/anel /3:18 PM /4:36 PM MELVI
[2016-05-26] MEDS: SODIUM CHLORIDE 0.9% FLUSH 5 ML FLUSH IVF SCH (19:58)
[2016-05-26 20:00] VITALS: BP 135/84; PULSE 101; RESP 18; TEMP 97.6; O2SAT 95
--- NOTE | 2016-05-26 20:15 | EKG ---
Date Performed: 05/25/2016 Time Performed: 19:52:34 PTAGE: 56 years EKG: SINUS TACHYCARDIA Nonspecific ST-T wave changes. When compared to previous tracing, the pat ient is now Tachycardic. ABNORMAL ECG PREVIOUS TRACING : 12/08/2006 09.02 DOCTOR: Page Zimmer Interpretating Date/Time 05/26/2016 20:14:06
[2016-05-26 21:37] VITALS: O2SAT 95
[2016-05-27] VITALS (7 sets, daily range): BP systolic 119–138; BP diastolic 66–84; PULSE 97–101; RESP 18–20; TEMP 97.6–99.2; O2SAT 95–100
[2016-05-27] MEDS: VANCOMYCIN INJ 1,500 MG in SODIUM CHLORID 0.9% 500 ML INJ 500 ML IV SCH ×2 (00:53→15:20)
[2016-05-27] MEDS: MORPHINE SULFATE 4 MG/ML INJ IV PUSH PRN ×2 (00:54→15:29)
[2016-05-27 06:54] LABS: BASOPHIL % 0.3 % (0.0-2.0); EOSINOPHIL % 0.1 % (0.0-4.0); HEMATOCRIT 34.6 % (35.0-46.0); HEMO FLAGS DIFF FINAL; LYMPH % 12.2 % (9.0-44.0); LYMPHOCYTE # 1.5 TH/MM3 (1.0-4.8); MEAN CELL VOLUME 90.8 FL (80.0-100.0); MEAN CORPUSCULAR HEMOGLOBIN 29.9 PG (27.0-34.0); MEAN CORPUSCULAR HGB CONC 32.9 % (32.0-36.0); MONO % 3.9 % (0.0-8.0); NEUT % 83.5 % (16.0-70.0); PLATELET COUNT 220 TH/MM3 (150-450); RED BLOOD COUNT 3.81 MIL/MM3 (4.00-5.30); RED CELL DISTRIBUTION WIDTH 13.5 % (11.6-17.2); WHITE BLOOD COUNT 11.9 TH/MM3 (4.0-11.0)
[2016-05-27 07:15] LABS: BICARBONATE 28.3 MEQ/L (21.0-32.0); MAGNESIUM 1.7 MG/DL (1.5-2.5); POTASSIUM 3.6 MEQ/L (3.5-5.1)
[2016-05-27] MEDS: SODIUM CHLORIDE 0.9% FLUSH 5 ML FLUSH IVF SCH ×2 (09:19→21:14)
[2016-05-27] MEDS: amLODIPine BESYLATE 5 MG TAB PO SCH ×2 (09:19→21:14)
--- NOTE | 2016-05-27 10:28 | HHI.PR ---
Subjective Remarks Pt reports that her pain is better today since surgery She denies any nausea/vomiting, abd pain, chest pain, fevers or chills. Objective Vitals Vital Signs Date Time Temp Pulse Resp B/P Pulse Ox O2 Delivery O2 Flow Rate FiO2 05/27/16 09:52 97 21 05/27/16 08:00 97.6 97 20 134/73 95 05/27/16 04:00 98.4 100 18 123/66 95 05/27/16 00:00 98.6 99 18 135/82 96 05/26/16 21:37 95 21 05/26/16 20:00 97.6 101 18 135/84 95 05/26/16 16:45 98.2 95 12 142/90 95 Nasal Cannula 2 05/26/16 16:30 94 12 145/83 92 Nasal Cannula 2 05/26/16 16:15 93 12 140/85 100 Aerosol Mask 05/26/16 16:00 90 14 152/92 90 Nasal Cannula 2 05/26/16 15:49 98.3 94 14 156/95 95 Nasal Cannula 3 05/26/16 05/26/16 05/27/16 15:00 23:00 07:00 Intake Total 2590 ml 740 ml Output Total 560 ml 120 ml Balance 2030 ml 620 ml Intake Oral 240 ml 240 ml IV Total 1450 ml 500 ml Other 900 ml Output Urine Total 300 ml Drainage Total 160 ml 120 ml Estimated Blood Loss 100 ml # Voids 2 # Bowel Movements 0 0 Result Diagram: 05/27/16 0537 05/27/16 0537 Other Results Laboratory Tests Test 05/25/16 05/26/16 05/27/16 19:30 05:00 05:37 White Blood Count 14.6 TH/MM3 10.8 TH/MM3 11.9 TH/MM3 Red Blood Count 4.78 MIL/MM3 4.05 MIL/MM3 3.81 MIL/MM3 Hemoglobin 14.2 GM/DL 12.5 GM/DL 11.4 GM/DL Hematocrit 42.7 % 36.3 % 34.6 % Mean Corpuscular Volume 89.4 FL 89.5 FL 90.8 FL Mean Corpuscular Hemoglobin 29.8 PG 30.8 PG 29.9 PG Mean Corpuscular Hemoglobin 33.3 % 34.4 % 32.9 % Concent Red Cell Distribution Width 13.4 % 13.6 % 13.5 % Platelet Count 283 TH/MM3 229 TH/MM3 220 TH/MM3 Mean Platelet Volume 7.4 FL 7.7 FL 8.0 FL Neutrophils (%) (Auto) 71.1 % 66.6 % 83.5 % Lymphocytes (%) (Auto) 22.5 % 26.6 % 12.2 % Monocytes (%) (Auto) 5.2 % 5.0 % 3.9 % Eosinophils (%) (Auto) 0.7 % 1.6 % 0.1 % Basophils (%) (Auto) 0.5 % 0.2 % 0.3 % Neutrophils # (Auto) 10.4 TH/MM3 7.2 TH/MM3 10.0 TH/MM3 Lymphocytes # (Auto) 3.3 TH/MM3 2.9 TH/MM3 1.5 TH/MM3 Monocytes # (Auto) 0.8 TH/MM3 0.5 TH/MM3 0.5 TH/MM3 Eosinophils # (Auto) 0.1 TH/MM3 0.2 TH/MM3 0.0 TH/MM3 Basophils # (Auto) 0.1 TH/MM3 0.0 TH/MM3 0.0 TH/MM3 CBC Comment DIFF FINAL DIFF FINAL DIFF FINAL Differential Comment Erythrocyte Sedimentation Rate 33 mm/hr Prothrombin Time 10.8 SEC Prothromb Time International 1.0 RATIO Ratio Activated Partial 24.8 SEC Thromboplast Time Sodium Level 136 MEQ/L 140 MEQ/L Potassium Level 3.7 MEQ/L 3.6 MEQ/L Chloride Level 99 MEQ/L 104 MEQ/L Carbon Dioxide Level 28.2 MEQ/L 28.3 MEQ/L Anion Gap 9 MEQ/L 8 MEQ/L Blood Urea Nitrogen 17 MG/DL 9 MG/DL Creatinine 0.74 MG/DL 0.48 MG/DL Estimat Glomerular Filtration 81 ML/MIN 133 ML/MIN Rate Random Glucose 128 MG/DL 135 MG/DL Calcium Level 8.7 MG/DL 8.3 MG/DL Total Bilirubin 0.6 MG/DL Aspartate Amino Transf 20 U/L (AST/SGOT) Alanine Aminotransferase 51 U/L (ALT/SGPT) Alkaline Phosphatase 81 U/L C-Reactive Protein 2.10 MG/DL Total Protein 7.7 GM/DL Albumin 3.1 GM/DL Magnesium Level 1.7 MG/DL Imaging Last Impressions Chest X-Ray 05/25/161927 Signed Impressions: Service Date/Time: Wednesday, May 25, 2016 19:40 - CONCLUSION: Normal examination for a patient of this age. Amrik Burkett MD Shoulder MRI 05/25/16 0000 Signed Impressions: Service Date/Time: Wednesday, May 25, 2016 21:58 - CONCLUSION: 1. Multiple too numerous to count soft tissue abscesses are seen in the soft tissues that surround the shoulder joint. The largest abscess appears to be positioned posterior to the shoulder and scapula in the soft tissues measuring at least 15.1 cm in length. 2. Multiple small abscesses are also seen along the left chest wall at the level of the axilla extending inferiorly. 3. No evidence of osteomyelitis is demonstrated at this time. Mark Anthony Mar MD Last 72 hours Impressions Chest X-Ray 05/25/161927 Signed Impressions: Service Date/Time: Wednesday, May 25, 2016 19:40 - CONCLUSION: Normal examination for a patient of this age. Amrik Burkett MD Objective Remarks General: NAD, AAOx3 Chest: CTA bilaterally Cardiac: Regular Abd: +BS, soft ND/NT Ext: Left shoulder bandages are c/d/i, MAGGIE drain in red, somewhat purulent fluid in it. A/P Problem List: (1) Cellulitis Status: Acute Plan: - Pt has been having issues left shoulder pain in the April 2016. - Patient was diagnosed with osteoarthritis of the left A-C joint, shoulder impingement and rotator cuff tendinitis. - She was reportedly given injection into left AC joint by Dr Lee at [facility] on 04/29/16. - Patient was seen by local sports medicine physician Dr. Almazan and given Kenalog injection to post left shoulder on May 07, 2016. - Patient was seen by her PCP and had MRI without contrast of the left shoulder on 05/06/16 which noted degenerative changes at the AC jointm questionable mild biceps tenosynovitis - Patient was given pain medication and antibiotic including Augmentin and Medrol Dosepak. - She has had low-grade fever at home up to 100.5 over the last 2 days - MRI Left shoulder (05/26) --> Multiple too numerous to count soft tissue abscesses are seen in the soft tissues that surround the shoulder joint. The largest abscess appears to be positioned posterior to the shoulder and scapula in the soft tissues measuring at least 15.1 cm in length. Multiple small abscesses are also seen along the left chest wall at the level of the axilla extending inferiorly. No evidence of osteomyelitis is demonstrated at this time. - Pt was given Vancomycin in the ER and has been continued - Orthopedic surgery following and pt was taken to the OR on 05/26/16 for arthrotomy and irrigation and debridement of the left shoulder and scapular area - No fever since admission. WBC count stable. - Pt with an elevated ESR of 33 - ID has been consulted. - Its not clear if any fluid was cultured from her surgery yesterday or not. We will need to discuss with Ortho. - DVT prophylaxis (2) Hypertension Status: Chronic Plan: - Stable. - Home meds continued - Clonidine prn. (3) Anxiety Status: Chronic Plan: - Xanax prn Assessment and Plan Patient examined. Assessment and plan formulated with Kate Estes PA-C. I agree with the above. F/U LEFT SHOULDER WOUND CX. CONT ABX. DISCUSSED WITH ID. WILL LIKELY NEED PICC AND IV ABX WITH HHC. Kate Estes May 27, 2016 10:28 Aden Finley MD May 27, 2016 15:22
[2016-05-27] MEDS ORDERED: ACETAMINOPHEN/HYDROcodone 325 MG/5 MG TAB PO PRN ×2 (15:30)
--- NOTE | 2016-05-27 16:03 | MB ---
cc: NIGEL KNIGHT MD DATE OF CONSULTATION 05/27/[address] Finley. REASON FOR CONSULTATION Abscesses of the shoulder. HISTORY OF THE PRESENT ILLNESS This is a 56-year-old white female who presented to the emergency department with pain at the left shoulder and also low-grade fever. The patient received an injection to the left AC joint on April 21 with Kenalog. Subsequently she developed swelling and then redness and pain in that continued on. She was evaluated by physicians for the problem. She received oral antibiotics in the form of Augmentin which she has taken for about a week. Because she was not improving she presented for evaluation. She states that she has been having pain on the 10/10 scale in the left shoulder and she has had restricted movement of the shoulder. She had an MRI which revealed a large abscess at the posterior aspect of the shoulder and multiple too numerous to count soft tissue abscesses were seen in the soft tissues around the shoulder joint. One large abscess was also noted measuring approximately 15.1 cm in length. The patient was taken to surgery and she underwent incision and drainage and cultures were taken. The MRI also has revealed multiple small abscesses along the left chest wall and at the level of the axilla extending inferiorly. There was no osteomyelitis demonstrated on the MRI. The patient currently feels well. She is afebrile. Her white blood cell count is 11.9 today but it was 14.9 on 05/25. PAST MEDICAL HISTORY Hypertension. ALLERGIES LORTAB. MEDICATIONS 1. Vancomycin. 2. Morphine sulfate. 3. Norvasc. 4. Ambien. SOCIAL HISTORY No tobacco. Occasional rare alcohol. No illicit drugs. The patient is . REVIEW OF SYSTEMS CONSTITUTION significant for fever. HEENT: No visual blurring or diplopia. No difficulty swallowing. No soreness of the throat. NECK: No neck pain or swelling. CARDIOVASCULAR: No palpitations. No chest pain. RESPIRATORY: No cough or shortness of breath. GASTROINTESTINAL: No nausea or vomiting, abdominal pain. GENITOURINARY: No urgency, frequency or dysuria. ENDOCRINE: No polyuria or polydipsia. MUSCULOSKELETAL: Significant for left shoulder pain. HEMATOLOGIC: No easy bruising or bleeding. INTEGUMENT: No skin rash or itching. NEUROLOGICAL: No weakness. Decreased mobility of the left upper extremity secondary to pain. PHYSICAL EXAMINATION GENERAL: This is a well-developed female who is in no acute distress. She is awake, alert, oriented. VITAL SIGNS: Include a temperature of 99.2, blood pressure 131/75, respiratory rate 20, heart rate 100. HEENT: Her head is atraumatic. Extraocular movements grossly intact. Pupils are reactive to light without icterus. Oropharynx no visible lesions. NECK: Supple. No adenopathy. LUNGS: Clear breath sounds. HEART: Regular rate and rhythm without murmurs. No rubs or gallops. ABDOMEN: Bowel sounds present, soft. Nontender. RECTAL: Not performed. EXTREMITIES: The left shoulder is swollen and there is a drainage catheter exiting the shoulder which has straw colored drainage. There is approximately 60 cc of drainage in the bulb. NEUROLOGICAL: No gross focal findings. PSYCHIATRIC: The patient is pleasant, calm and cooperative. SKIN: No rash. LABORATORY DATA Labs WBC 11.9, 83% neutrophils. Hemoglobin 11.4. Platelet count 220. Creatinine 0.4, BUN 9. C-reactive protein 2.1. Sedimentation rate 33. IMPRESSION 1. Multiple abscesses of the left shoulder. 1. The patient with recent injection of the left shoulder for treatment of pain. RECOMMENDATIONS 1. Continue vancomycin intravenous. 2. Follow the cultures to determine if antibiotic needs to be changed or different antibiotic needs to be used. Given the complexity of this abscesses in the shoulder joint, I suspect the patient will require some extended period of antibiotic treatment. The antibiotics choice will depend on the culture results. Thank you for this consultation. Further recommendations will be given on followup. Nigel Knight MD FD/AUGUSTIN /3:28 PM /3:40 PM MELVI
[2016-05-27] MEDS ORDERED: oxyCODONE/ACETAMINOPHEN 5 MG/325 MG TAB PO PRN (18:15)
[2016-05-28] VITALS: BP 130/77; PULSE 102; RESP 20; TEMP 98.6; O2SAT 95
[2016-05-28] MEDS: oxyCODONE/ACETAMINOPHEN 5 MG/325 MG TAB PO PRN ×3 (01:24→18:41)
[2016-05-28] MEDS: ZOLPIDEM TARTRATE 10 MG TAB PO PRN (01:24)
[2016-05-28] MEDS: VANCOMYCIN INJ 1,500 MG in SODIUM CHLORID 0.9% 500 ML INJ 500 ML IV SCH (01:34)
[2016-05-28] MEDS ORDERED: PHARMACY ORDERED LAB XX ONE (01:45)
[2016-05-28 05:27] LABS: AUTOMATED NEUTROPHIL # 5.2 TH/MM3 (1.8-7.7); BASOPHIL % 0.3 % (0.0-2.0); EOSINOPHIL # 0.2 TH/MM3 (0-0.4); HEMATOCRIT 31.1 % (35.0-46.0); HEMO FLAGS DIFF FINAL; LYMPHOCYTE # 2.9 TH/MM3 (1.0-4.8); MEAN CELL VOLUME 89.9 FL (80.0-100.0); MEAN CORPUSCULAR HEMOGLOBIN 30.8 PG (27.0-34.0); MEAN CORPUSCULAR HGB CONC 34.2 % (32.0-36.0); MONO % 7.3 % (0.0-8.0); NEUT % 58.4 % (16.0-70.0); PLATELET COUNT 198 TH/MM3 (150-450); RED BLOOD COUNT 3.46 MIL/MM3 (4.00-5.30); RED CELL DISTRIBUTION WIDTH 13.3 % (11.6-17.2); WHITE BLOOD COUNT 8.9 TH/MM3 (4.0-11.0)
[2016-05-28 05:52] LABS: MAGNESIUM 1.7 MG/DL (1.5-2.5); POTASSIUM 3.5 MEQ/L (3.5-5.1)
[2016-05-28 08:00] VITALS: BP 131/86; PULSE 95; RESP 18; TEMP 96.6; O2SAT 92
[2016-05-28] MEDS: amLODIPine BESYLATE 5 MG TAB PO SCH ×2 (08:17→20:04)
[2016-05-28] MEDS: SODIUM CHLORIDE 0.9% FLUSH 5 ML FLUSH IVF SCH ×2 (08:19→20:04)
--- NOTE | 2016-05-28 08:23 | PD.ORT.PN ---
Subjective Subjective Remarks POD 2 s/p I&D left shoulder doing well. pain controlled. Objective Vitals Vital Signs Date Time Temp Pulse Resp B/P Pulse Ox O2 Delivery O2 Flow Rate FiO2 05/28/16 02:24 17 05/28/16 00:00 98.6 102 20 130/77 95 05/27/16 20:00 98.1 98 18 128/68 96 05/27/16 16:00 98.2 101 19 138/84 95 05/27/16 11:57 99.2 100 20 131/75 95 05/27/16 09:52 97 21 I/O 05/27/16 05/27/16 05/27/16 05/28/16 05/28/16 05/28/16 07:00 15:00 23:00 07:00 15:00 23:00 Intake Total 740 ml 1080 ml 240 ml 629 ml Output Total 120 ml 660 ml 50 ml 45 ml 70 ml Balance 620 ml 420 ml 190 ml 584 ml -70 ml Intake Oral 240 ml 1080 ml 240 ml 240 ml IV Total 500 ml 389 ml Output Urine Total 600 ml Drainage Total 120 ml 60 ml 50 ml 45 ml 70 ml # Voids 2 2 2 # Bowel Movements 0 0 0 0 Result Diagram: 05/28/1644105/28/16441 Objective Remarks LUE: +swelling of shoulder. dressings intact. clean and dry. +drain. NVI Assessment & Plan Assessment and Plan 1) I&D left shoulder POD 2 -WBAT -daily dressing changes -maintain drain. plan for DC POD 3 -monitor cultures Bipin Coates May 28, 2016 08:23
[2016-05-28 09:38] VITALS: O2SAT 96
--- NOTE | 2016-05-28 11:19 | HHI.PR ---
Subjective Remarks Pt complaints that she has some swelling in the left arm Percocet is controlling her pain better today Objective Vitals Vital Signs Date Time Temp Pulse Resp B/P Pulse Ox O2 Delivery O2 Flow Rate FiO2 05/28/16 09:38 96 21 05/28/16 08:00 96.6 95 18 131/86 92 05/28/16 02:24 17 05/28/16 00:00 98.6 102 20 130/77 95 05/27/16 20:00 98.1 98 18 128/68 96 05/27/16 16:00 98.2 101 19 138/84 95 05/27/16 11:57 99.2 100 20 131/75 95 05/27/16 05/27/16 05/28/16 15:00 23:00 07:00 Intake Total 1080 ml 240 ml 629 ml Output Total 660 ml 50 ml 45 ml Balance 420 ml 190 ml 584 ml Intake Oral 1080 ml 240 ml 240 ml IV Total 389 ml Output Urine Total 600 ml Drainage Total 60 ml 50 ml 45 ml # Voids 2 2 # Bowel Movements 0 0 0 Result Diagram: 05/28/16 0442 05/28/16 0442 Other Results Laboratory Tests Test 05/27/16 05/28/16 05/28/16 05:37 01:30 04:42 White Blood Count 11.9 TH/MM3 8.9 TH/MM3 Red Blood Count 3.81 MIL/MM3 3.46 MIL/MM3 Hemoglobin 11.4 GM/DL 10.6 GM/DL Hematocrit 34.6 % 31.1 % Mean Corpuscular Volume 90.8 FL 89.9 FL Mean Corpuscular Hemoglobin 29.9 PG 30.8 PG Mean Corpuscular Hemoglobin 32.9 % 34.2 % Concent Red Cell Distribution Width 13.5 % 13.3 % Platelet Count 220 TH/MM3 198 TH/MM3 Mean Platelet Volume 8.0 FL 7.8 FL Neutrophils (%) (Auto) 83.5 % 58.4 % Lymphocytes (%) (Auto) 12.2 % 32.0 % Monocytes (%) (Auto) 3.9 % 7.3 % Eosinophils (%) (Auto) 0.1 % 2.0 % Basophils (%) (Auto) 0.3 % 0.3 % Neutrophils # (Auto) 10.0 TH/MM3 5.2 TH/MM3 Lymphocytes # (Auto) 1.5 TH/MM3 2.9 TH/MM3 Monocytes # (Auto) 0.5 TH/MM3 0.6 TH/MM3 Eosinophils # (Auto) 0.0 TH/MM3 0.2 TH/MM3 Basophils # (Auto) 0.0 TH/MM3 0.0 TH/MM3 CBC Comment DIFF FINAL DIFF FINAL Differential Comment Sodium Level 140 MEQ/L 142 MEQ/L Potassium Level 3.6 MEQ/L 3.5 MEQ/L Chloride Level 104 MEQ/L 106 MEQ/L Carbon Dioxide Level 28.3 MEQ/L 30.0 MEQ/L Anion Gap 8 MEQ/L 6 MEQ/L Blood Urea Nitrogen 9 MG/DL 12 MG/DL Creatinine 0.48 MG/DL 0.55 MG/DL Estimat Glomerular Filtration 133 ML/MIN 114 ML/MIN Rate Random Glucose 135 MG/DL 131 MG/DL Calcium Level 8.3 MG/DL 7.8 MG/DL Magnesium Level 1.7 MG/DL 1.7 MG/DL Vancomycin Level Trough 9.9 MCG/ML Imaging Last Impressions Chest X-Ray 05/25/161927 Signed Impressions: Service Date/Time: Wednesday, May 25, 2016 19:40 - CONCLUSION: Normal examination for a patient of this age. Amrik Burkett MD Shoulder MRI 05/25/16 0000 Signed Impressions: Service Date/Time: Wednesday, May 25, 2016 21:58 - CONCLUSION: 1. Multiple too numerous to count soft tissue abscesses are seen in the soft tissues that surround the shoulder joint. The largest abscess appears to be positioned posterior to the shoulder and scapula in the soft tissues measuring at least 15.1 cm in length. 2. Multiple small abscesses are also seen along the left chest wall at the level of the axilla extending inferiorly. 3. No evidence of osteomyelitis is demonstrated at this time. Mark Anthony Mar MD Last 72 hours Impressions Chest X-Ray 05/25/161927 Signed Impressions: Service Date/Time: Wednesday, May 25, 2016 19:40 - CONCLUSION: Normal examination for a patient of this age. Amrik Burkett MD Objective Remarks General: NAD, AAOx3 Chest: CTA bilaterally Cardiac: Regular Abd: +BS, soft ND/NT Ext: Left shoulder bandages are c/d/i, MAGGIE drain in red, somewhat purulent fluid in it. Mild swelling in the left upper extremity A/P Problem List: (1) Cellulitis Status: Acute Plan: - Pt has been having issues left shoulder pain in the April 2016. - Patient was diagnosed with osteoarthritis of the left A-C joint, shoulder impingement and rotator cuff tendinitis. - She was reportedly given injection into left AC joint by Dr Lee at [facility] on 04/29/16. - Patient was seen by local sports medicine physician Dr. Almazan and given Kenalog injection to post left shoulder on May 07, 2016. - Patient was seen by her PCP and had MRI without contrast of the left shoulder on 05/06/16 which noted degenerative changes at the AC jointm questionable mild biceps tenosynovitis - Patient was given pain medication and antibiotic including Augmentin and Medrol Dosepak. - She has had low-grade fever at home up to 100.5 over the last 2 days - MRI Left shoulder (05/26) --> Multiple too numerous to count soft tissue abscesses are seen in the soft tissues that surround the shoulder joint. The largest abscess appears to be positioned posterior to the shoulder and scapula in the soft tissues measuring at least 15.1 cm in length. Multiple small abscesses are also seen along the left chest wall at the level of the axilla extending inferiorly. No evidence of osteomyelitis is demonstrated at this time. - Pt was given Vancomycin in the ER and has been continued - Orthopedic surgery following and pt was taken to the OR on 05/26/16 for arthrotomy and irrigation and debridement of the left shoulder and scapular area - No fever since admission. WBC count stable. - Pt with an elevated ESR of 33 - ID following. - Fluid cultures are pending. Gram stain with gram positive cocci in pairs and clusters - Cont. Vanc - DVT prophylaxis (2) Hypertension Status: Chronic Plan: - Stable. - Home meds continued - Clonidine prn. (3) Anxiety Status: Chronic Plan: - Xanax prn Assessment and Plan Patient examined. Assessment and plan formulated with Kate Estes PA-C. I agree with the above. decide on abx course once cx results available. Kate Estes May 28, 2016 11:19 Aden Finley MD May 28, 2016 11:32
[2016-05-28 12:00] VITALS: BP 137/74; PULSE 91; RESP 18; TEMP 96.7; O2SAT 94
[2016-05-28] MEDS: VANCOMYCIN INJ 1,750 MG in SODIUM CHLORID 0.9% 500 ML INJ 500 ML IV SCH (14:22)
[2016-05-28 16:00] VITALS: BP 114/80; PULSE 105; RESP 17; TEMP 98; O2SAT 99
[2016-05-28 20:00] VITALS: BP 115/69; PULSE 104; RESP 18; TEMP 98.8; O2SAT 96
[2016-05-29] VITALS: BP 118/64; PULSE 96; RESP 20; TEMP 97.8; O2SAT 95
[2016-05-29] MEDS: ZOLPIDEM TARTRATE 10 MG TAB PO PRN (01:20)
[2016-05-29] MEDS: VANCOMYCIN INJ 1,750 MG in SODIUM CHLORID 0.9% 500 ML INJ 500 ML IV SCH ×2 (01:20→13:25)
[2016-05-29] MEDS: oxyCODONE/ACETAMINOPHEN 5 MG/325 MG TAB PO PRN ×2 (01:20→21:48)
[2016-05-29 08:16] VITALS: BP 127/68; PULSE 100; RESP 16; TEMP 97.1; O2SAT 96
--- NOTE | 2016-05-29 09:03 | PD.ORT.PN ---
Subjective Subjective Remarks Pain control. No new complaints have not done first dressing changes as of yet Objective Vitals Vital Signs Date Time Temp Pulse Resp B/P Pulse Ox O2 Delivery O2 Flow Rate FiO2 05/29/16 08:16 97.1 100 16 127/68 96 05/29/16 02:20 16 05/29/16 00:00 97.8 96 20 118/64 95 05/28/16 20:00 98.8 104 18 115/69 96 05/28/16 16:00 98.0 105 17 114/80 99 05/28/16 12:00 96.7 91 18 137/74 94 05/28/16 09:38 96 21 I/O 05/28/16 05/28/16 05/28/16 05/29/16 05/29/16 05/29/16 07:00 15:00 23:00 07:00 15:00 23:00 Intake Total 629 ml 400 ml 360 ml 240 ml 500 ml Output Total 45 ml 150 ml 830 ml 600 ml 45 ml Balance 584 ml 250 ml -470 ml -360 ml 455 ml Intake Oral 240 ml 400 ml 360 ml 240 ml IV Total 389 ml 500 ml Output Urine Total 750 ml 600 ml Drainage Total 45 ml 150 ml 80 ml 45 ml # Voids 2 2 # Bowel Movements 0 0 0 0 Result Diagram: 05/28/1644105/28/16441 Objective Remarks LUE: +swelling of shoulder. dressings intact. clean and dry. +drain. NVI Assessment & Plan Assessment and Plan 1) I&D left shoulder POD 3 -WBAT -daily dressing changes -maintain drain we will remove drain next week -monitor cultures and antibiotics to be managed by infectious disease Occupational therapy to work on range of motion of shoulder, weightbearing as tolerated JAMIE MATA PA-C May 29, 2016 09:03
[2016-05-29] MEDS: amLODIPine BESYLATE 5 MG TAB PO SCH ×2 (10:20→21:15)
[2016-05-29] MEDS: SODIUM CHLORIDE 0.9% FLUSH 5 ML FLUSH IVF SCH ×2 (10:22→21:15)
--- NOTE | 2016-05-29 10:35 | HHI.PR ---
Subjective Remarks pain seems controlled. rue swelling seems better Objective Vitals lying in bed. oriented left shoulder heavily bandaged with MAGGIE drain. left ue swelling is better. 2plus distal pulses Vital Signs Date Time Temp Pulse Resp B/P Pulse Ox O2 Delivery O2 Flow Rate FiO2 05/29/16 08:16 97.1 100 16 127/68 96 05/29/16 02:20 16 05/29/16 00:00 97.8 96 20 118/64 95 05/28/16 20:00 98.8 104 18 115/69 96 05/28/16 16:00 98.0 105 17 114/80 99 05/28/16 12:00 96.7 91 18 137/74 94 05/28/16 05/28/16 05/29/16 15:00 23:00 07:00 Intake Total 400 ml 360 ml 240 ml Output Total 150 ml 830 ml 600 ml Balance 250 ml -470 ml -360 ml Intake Oral 400 ml 360 ml 240 ml Output Urine Total 750 ml 600 ml Drainage Total 150 ml 80 ml # Voids 2 # Bowel Movements 0 0 0 Result Diagram: 05/28/16 0442 05/28/16 0442 Imaging Last Impressions Chest X-Ray 05/25/161927 Signed Impressions: Service Date/Time: Wednesday, May 25, 2016 19:40 - CONCLUSION: Normal examination for a patient of this age. Amrik Burkett MD Shoulder MRI 05/25/16 0000 Signed Impressions: Service Date/Time: Wednesday, May 25, 2016 21:58 - CONCLUSION: 1. Multiple too numerous to count soft tissue abscesses are seen in the soft tissues that surround the shoulder joint. The largest abscess appears to be positioned posterior to the shoulder and scapula in the soft tissues measuring at least 15.1 cm in length. 2. Multiple small abscesses are also seen along the left chest wall at the level of the axilla extending inferiorly. 3. No evidence of osteomyelitis is demonstrated at this time. Mark Anthony Mar MD Last 72 hours Impressions Chest X-Ray 05/25/161927 Signed Impressions: Service Date/Time: Wednesday, May 25, 2016 19:40 - CONCLUSION: Normal examination for a patient of this age. Amrik Burkett MD A/P Problem List: (1) Cellulitis Status: Acute Plan: - Pt has been having issues left shoulder pain in the April 2016. - Patient was diagnosed with osteoarthritis of the left A-C joint, shoulder impingement and rotator cuff tendinitis. - She was reportedly given injection into left AC joint by Dr Lee at [facility] on 04/29/16. - Patient was seen by local sports medicine physician Dr. Almazan and given Kenalog injection to post left shoulder on May 07, 2016. - Patient was seen by her PCP and had MRI without contrast of the left shoulder on 05/06/16 which noted degenerative changes at the AC jointm questionable mild biceps tenosynovitis - Patient was given pain medication and antibiotic including Augmentin and Medrol Dosepak. - She has had low-grade fever at home up to 100.5 over the last 2 days - MRI Left shoulder (05/26) --> Multiple too numerous to count soft tissue abscesses are seen in the soft tissues that surround the shoulder joint. The largest abscess appears to be positioned posterior to the shoulder and scapula in the soft tissues measuring at least 15.1 cm in length. Multiple small abscesses are also seen along the left chest wall at the level of the axilla extending inferiorly. No evidence of osteomyelitis is demonstrated at this time. - Pt was given Vancomycin in the ER and has been continued - Orthopedic surgery following and pt was taken to the OR on 05/26/16 for arthrotomy and irrigation and debridement of the left shoulder and scapular area - No fever since admission. WBC count stable. - Pt with an elevated ESR of 33 - ID following. -wound cx growing staph aureus with sens. pending. cont vanco. wound bandages to be changed today. keep pt over weekend and decide on abx course for outpt with ID (2) Hypertension Status: Chronic Plan: - Stable. - Home meds continued - Clonidine prn. (3) Anxiety Status: Chronic Plan: - Xanax prn Aden Finley MD May 29, 2016 10:35 I agree with the above. decide on abx course once cx results available. Aden Finley MD May 29, 2016 10:35
[2016-05-29] MEDS ORDERED: LACTULOSE SYRUP 20 GM/30 ML CUP PO PRN (11:45)
[2016-05-29] MEDS ORDERED: LACTULOSE SYRUP 20 GM/30 ML CUP PO ONE (11:45)
[2016-05-29 12:30] VITALS: BP 120/76; PULSE 96; RESP 16; TEMP 97.4; O2SAT 97
--- NOTE | 2016-05-29 13:22 | HHI.IDPN ---
Note Infectious Disease Note Patient notes little pain at this time. Says she has more pain in the left shoulder at night. Afebrile. Wound culture has Staph aureus. Continue to have copious drainage from the Jose drain. PAST MEDICAL HISTORY Hypertension. ALLERGIES LORTAB. ANTIBIOTICS: Vancomycin. SOCIAL HISTORY No tobacco. Occasional rare alcohol. No illicit drugs. The patient is . OBJ: Vital Signs Date Time Temp Pulse Resp B/P Pulse Ox O2 Delivery O2 Flow Rate FiO2 05/29/16 08:16 97.1 100 16 127/68 96 05/29/16 02:20 16 05/29/16 00:00 97.8 96 20 118/64 95 05/28/16 20:00 98.8 104 18 115/69 96 05/28/16 16:00 98.0 105 17 114/80 99 05/28/16 05/28/16 05/29/16 15:00 23:00 07:00 Intake Total 400 ml 360 ml 240 ml Output Total 150 ml 830 ml 600 ml Balance 250 ml -470 ml -360 ml Intake Oral 400 ml 360 ml 240 ml Output Urine Total 750 ml 600 ml Drainage Total 150 ml 80 ml # Voids 2 # Bowel Movements 0 0 0 Laboratory Tests Test 05/28/16 04:42 White Blood Count 8.9 TH/MM3 Red Blood Count 3.46 MIL/MM3 Hemoglobin 10.6 GM/DL Hematocrit 31.1 % Mean Corpuscular Volume 89.9 FL Mean Corpuscular Hemoglobin 30.8 PG Mean Corpuscular Hemoglobin 34.2 % Concent Red Cell Distribution Width 13.3 % Platelet Count 198 TH/MM3 Mean Platelet Volume 7.8 FL Neutrophils (%) (Auto) 58.4 % Lymphocytes (%) (Auto) 32.0 % Monocytes (%) (Auto) 7.3 % Eosinophils (%) (Auto) 2.0 % Basophils (%) (Auto) 0.3 % Neutrophils # (Auto) 5.2 TH/MM3 Lymphocytes # (Auto) 2.9 TH/MM3 Monocytes # (Auto) 0.6 TH/MM3 Eosinophils # (Auto) 0.2 TH/MM3 Basophils # (Auto) 0.0 TH/MM3 CBC Comment DIFF FINAL Differential Comment Laboratory Tests Test 05/28/16 04:42 Sodium Level 142 MEQ/L Potassium Level 3.5 MEQ/L Chloride Level 106 MEQ/L Carbon Dioxide Level 30.0 MEQ/L Anion Gap 6 MEQ/L Blood Urea Nitrogen 12 MG/DL Creatinine 0.55 MG/DL Estimat Glomerular Filtration 114 ML/MIN Rate Random Glucose 131 MG/DL Calcium Level 7.8 MG/DL Magnesium Level 1.7 MG/DL Microbiology Date/Time Procedure Status Source Growth 05/26/16 14:54 Acid Fast Stain Received Other Pending 05/26/16 14:54 Mycobacterial Culture Received Other Pending 05/26/16 14:54 Fungal Smear - Final Resulted Other NO FUNGAL ELEMENTS SEEN. 05/26/16 14:54 Fungal Culture Resulted Other Pending 05/26/16 14:54 Gram Stain - Final Complete Wound Shoulder 05/26/16 14:54 Wound Culture - Final Complete Staphylococcus Aureus 05/26/16 15:00 Acid Fast Stain Received Other Pending 05/26/16 15:00 Mycobacterial Culture Received Other Pending 05/26/16 15:00 Gram Stain - Final Complete Wound Shoulder 05/26/16 15:00 Wound Culture - Final Complete Staphylococcus Aureus 05/26/16 15:00 Fungal Smear - Final Resulted Other NO FUNGAL ELEMENTS SEEN. 05/26/16 15:00 Fungal Culture Resulted Other Pending PHYSICAL EXAMINATION GENERAL: No acute distress. She is awake, alert, oriented. HEENT: Her head is atraumatic. Extraocular movements grossly intact. Pupils are reactive to light without icterus. Oropharynx no visible lesions. NECK: Supple. No adenopathy. LUNGS: Clear breath sounds. HEART: Regular rate and rhythm without murmurs. No rubs or gallops. ABDOMEN: Bowel sounds present, soft. Nontender. EXTREMITIES: The left shoulder is swollen and there is a drainage catheter exiting the shoulder which has pink colored drainage. Tender to palpation over the entire shoulder. LUE swelling. NEUROLOGICAL: No gross focal findings. SKIN: No rash. IMPRESSION 1. Multiple abscesses of the left shoulder. MSSA. 1. The patient with recent injection of the left shoulder for treatment of pain. RECOMMENDATIONS 1. Stop vancomycin. 2. Start Oxacillin. 3. Monitor progress over weekend. She will need IV antibiotic on discharge. Camden Scott MD May 29, 2016 13:22
[2016-05-29] MEDS: OXACILLIN INJ 2 GM in SODIUM CHLORIDE 0.9% INJ 100 ML IV SCH ×3 (14:12→22:04)
[2016-05-29 16:14] VITALS: BP 130/68; PULSE 92; RESP 16; TEMP 96.9; O2SAT 98
[2016-05-29 20:00] VITALS: BP 152/92; PULSE 99; RESP 20; TEMP 99.4; O2SAT 96
[2016-05-30] VITALS: BP 148/88; PULSE 88; RESP 20; TEMP 99; O2SAT 95
[2016-05-30] MEDS ORDERED: PHARMACY ORDERED LAB XX ONE (01:45)
[2016-05-30] MEDS: ZOLPIDEM TARTRATE 10 MG TAB PO PRN (01:46)
[2016-05-30] MEDS: oxyCODONE/ACETAMINOPHEN 5 MG/325 MG TAB PO PRN ×2 (01:47→20:17)
[2016-05-30] MEDS: OXACILLIN INJ 2 GM in SODIUM CHLORIDE 0.9% INJ 100 ML IV SCH ×6 (01:48→20:09)
[2016-05-30] MEDS: SODIUM CHLORIDE 0.9% FLUSH 5 ML FLUSH IVF SCH ×2 (07:55→20:09)
[2016-05-30] MEDS: amLODIPine BESYLATE 5 MG TAB PO SCH ×2 (07:55→20:09)
[2016-05-30 08:00] VITALS: BP 119/74; PULSE 127; RESP 17; TEMP 97; O2SAT 94
--- NOTE | 2016-05-30 08:19 | PD.ORT.PN ---
Subjective Subjective Remarks Moderate left shoulder pain. No new complaints. No new radiating arm pain. No CP, SOB, abd pain or fever Objective Vitals Vital Signs Date Time Temp Pulse Resp B/P Pulse Ox O2 Delivery O2 Flow Rate FiO2 05/30/16 00:00 99.0 88 20 148/88 95 05/29/16 20:00 99.4 99 20 152/92 96 05/29/16 16:14 96.9 92 16 130/68 98 05/29/16 12:30 97.4 96 16 120/76 97 05/29/16 08:16 97.1 100 16 127/68 96 I/O 05/29/16 05/29/16 05/29/16 05/30/16 05/30/16 05/30/16 07:00 15:00 23:00 07:00 15:00 23:00 Intake Total 240 ml 1480 ml 240 ml Output Total 600 ml 75 ml 30 ml 600 ml Balance -360 ml 1405 ml -30 ml -360 ml Intake Oral 240 ml 980 ml 240 ml IV Total 500 ml Output Urine Total 600 ml 600 ml Drainage Total 75 ml 30 ml # Voids 4 # Bowel Movements 0 0 Result Diagram: 05/28/1644105/28/16441 Objective Remarks Sitting up in bed No acute distress LUE Dressing c/d/i, moderate swelling at shoulder, no new erythema Drain in place, clean drain site +motor brachiorad, +sens hand, +nvi - Radial pulse 2/4 Assessment & Plan Ortho Post Op Day #: 4 Problem List: Assessment and Plan 1) I&D left shoulder/AC joint, drain placement, pod#4 - po pain meds as needed - daily dressing changes -maintain drain. Will remove drain next week -monitor cultures and antibiotics to be managed by ID - PT/OT to improve ROM shoulder, weightbearing as tolerated - Will follow Michela Lewis May 30, 2016 08:19
[2016-05-30] MEDS ORDERED: BACLOFEN 10 MG TAB PO ONE (09:00)
--- NOTE | 2016-05-30 11:37 | HHI.PR ---
Subjective Remarks c/o muscle spasms of left shoulder Objective Vitals heart reg lung cta abd s/nt ext no edema left shoulder bandaged. elizabeth. donnae less swollen Vital Signs Date Time Temp Pulse Resp B/P Pulse Ox O2 Delivery O2 Flow Rate FiO2 05/30/16 08:00 97.0 127 17 119/74 94 05/30/16 00:00 99.0 88 20 148/88 95 05/29/16 20:00 99.4 99 20 152/92 96 05/29/16 16:14 96.9 92 16 130/68 98 05/29/16 12:30 97.4 96 16 120/76 97 05/29/16 05/29/16 05/30/16 15:00 23:00 07:00 Intake Total 1480 ml 240 ml Output Total 75 ml 30 ml 600 ml Balance 1405 ml -30 ml -360 ml Intake Oral 980 ml 240 ml IV Total 500 ml Output Urine Total 600 ml Drainage Total 75 ml 30 ml # Voids 4 # Bowel Movements 0 Result Diagram: 05/28/162 05/28/162 Imaging Last Impressions Chest X-Ray 05/25/161927 Signed Impressions: Service Date/Time: Wednesday, May 25, 2016 19:40 - CONCLUSION: Normal examination for a patient of this age. Amrik Burkett MD Shoulder MRI 05/25/16 0000 Signed Impressions: Service Date/Time: Wednesday, May 25, 2016 21:58 - CONCLUSION: 1. Multiple too numerous to count soft tissue abscesses are seen in the soft tissues that surround the shoulder joint. The largest abscess appears to be positioned posterior to the shoulder and scapula in the soft tissues measuring at least 15.1 cm in length. 2. Multiple small abscesses are also seen along the left chest wall at the level of the axilla extending inferiorly. 3. No evidence of osteomyelitis is demonstrated at this time. Mark Anthony Mar MD Last 72 hours Impressions Chest X-Ray 05/25/161927 Signed Impressions: Service Date/Time: Wednesday, May 25, 2016 19:40 - CONCLUSION: Normal examination for a patient of this age. Amrik Burkett MD A/P Problem List: (1) Cellulitis Status: Acute Plan: - Pt has been having issues left shoulder pain in the April 2016. - Patient was diagnosed with osteoarthritis of the left A-C joint, shoulder impingement and rotator cuff tendinitis. - She was reportedly given injection into left AC joint by Dr Lee at [facility] on 04/29/16. - Patient was seen by local sports medicine physician Dr. Almazan and given Kenalog injection to post left shoulder on May 07, 2016. - Patient was seen by her PCP and had MRI without contrast of the left shoulder on 05/06/16 which noted degenerative changes at the AC jointm questionable mild biceps tenosynovitis - Patient was given pain medication and antibiotic including Augmentin and Medrol Dosepak. - She has had low-grade fever at home up to 100.5 over the last 2 days - MRI Left shoulder (05/26) --> Multiple too numerous to count soft tissue abscesses are seen in the soft tissues that surround the shoulder joint. The largest abscess appears to be positioned posterior to the shoulder and scapula in the soft tissues measuring at least 15.1 cm in length. Multiple small abscesses are also seen along the left chest wall at the level of the axilla extending inferiorly. No evidence of osteomyelitis is demonstrated at this time. - Pt was given Vancomycin in the ER and has been changed to oxacillin for MSSA - Orthopedic surgery following and pt was taken to the OR on 05/26/16 for arthrotomy and irrigation and debridement of the left shoulder and scapular area - ID following. -wound cx growing mssa and will need d/c home with iv abx. on oxacillin now. decide on timing for picc with ID (2) Hypertension Status: Chronic Plan: - Stable. - Home meds continued - Clonidine prn. (3) Anxiety Status: Chronic Plan: - Xanax prn Aden Finley MD May 30, 2016 11:37
[2016-05-30 12:00] VITALS: BP 128/71; PULSE 100; RESP 17; TEMP 97.2; O2SAT 95
[2016-05-30] MEDS: BACLOFEN 10 MG TAB PO SCH ×2 (12:58→22:00)
[2016-05-30 16:00] VITALS: BP 127/76; PULSE 115; RESP 17; TEMP 97.3; O2SAT 95
[2016-05-30 20:00] VITALS: BP 142/85; PULSE 96; RESP 18; TEMP 98; O2SAT 97
[2016-05-31] VITALS: BP 145/86; PULSE 100; RESP 18; TEMP 97.2; O2SAT 92
[2016-05-31] MEDS: ZOLPIDEM TARTRATE 10 MG TAB PO PRN (02:04)
[2016-05-31] MEDS: oxyCODONE/ACETAMINOPHEN 5 MG/325 MG TAB PO PRN ×3 (02:04→20:25)
[2016-05-31] MEDS: BACLOFEN 10 MG TAB PO SCH (02:05)
[2016-05-31] MEDS: OXACILLIN INJ 2 GM in SODIUM CHLORIDE 0.9% INJ 100 ML IV SCH ×6 (02:05→20:27)
[2016-05-31] MEDS: amLODIPine BESYLATE 5 MG TAB PO SCH ×2 (07:58→20:25)
[2016-05-31] MEDS: SODIUM CHLORIDE 0.9% FLUSH 5 ML FLUSH IVF SCH ×2 (07:58→20:28)
[2016-05-31 08:00] VITALS: BP 125/77; PULSE 101; RESP 17; TEMP 96.4; O2SAT 92
--- NOTE | 2016-05-31 08:30 | PD.ORT.PN ---
Subjective Subjective Remarks Resting in bed - moderate left shoulder pain. Able to sleep last night. No new complaints. No new radiating arm pain. No CP, SOB, abd pain or fever Objective Vitals Vital Signs Date Time Temp Pulse Resp B/P Pulse Ox O2 Delivery O2 Flow Rate FiO2 05/31/16 06:56 18 05/31/16 00:00 97.2 100 18 145/86 92 05/30/16 20:00 98.0 96 18 142/85 97 05/30/16 16:00 97.3 115 17 127/76 95 05/30/16 12:00 97.2 100 17 128/71 95 I/O 05/30/16 05/30/16 05/30/16 05/31/16 05/31/16 05/31/16 07:00 15:00 23:00 07:00 15:00 23:00 Intake Total 240 ml 1110 ml 555 ml 838 ml Output Total 600 ml 30 ml 30 ml 10 ml Balance -360 ml 1080 ml 525 ml 828 ml Intake Oral 240 ml 350 ml 240 ml 420 ml IV Total 760 ml 315 ml 418 ml Output Urine Total 600 ml Drainage Total 30 ml 30 ml 10 ml # Voids 3 3 2 # Bowel Movements 0 0 0 1 Result Diagram: 05/28/1644105/28/16441 Objective Remarks Laying in bed, No acute distress LUE Dressing c/d/i, moderate swelling at shoulder, no new erythema Drain in place, clean drain site +motor brachiorad, +sens hand, +nvi - Radial pulse 2/4 Assessment & Plan Ortho Post Op Day #: 5 Problem List: Assessment and Plan 1) I&D left shoulder/AC joint, drain placement, pod#5 - po pain meds as needed - daily dressing changes -maintain drain. Will remove drain next week -monitor cultures and antibiotics to be managed by ID - MSSA. Currently on oxacillin. -PT/OT to improve ROM shoulder, weightbearing as tolerated -Will follow. Michela Lewis May 31, 2016 08:30
[2016-05-31] MEDS ORDERED: CARISOPRODOL 350 MG TAB PO ONE (10:00)
[2016-05-31] MEDS ORDERED: KETOROLAC TROMETHAMINE 30 MG/ML (IVP) VIAL IV PUSH ONE (10:00)
--- NOTE | 2016-05-31 10:08 | HHI.PR ---
Subjective Remarks complains of lue swelling. muscle spasms Objective Vitals left shoulder wound/drain swelling lue about the same heart reg lung cta abd s/nt ext no edema Vital Signs Date Time Temp Pulse Resp B/P Pulse Ox O2 Delivery O2 Flow Rate FiO2 05/31/16 08:00 96.4 101 17 125/77 92 05/31/16 06:56 18 05/31/16 00:00 97.2 100 18 145/86 92 05/30/16 20:00 98.0 96 18 142/85 97 05/30/16 16:00 97.3 115 17 127/76 95 05/30/16 12:00 97.2 100 17 128/71 95 05/30/16 05/30/16 05/31/16 15:00 23:00 07:00 Intake Total 1110 ml 555 ml 838 ml Output Total 30 ml 30 ml 10 ml Balance 1080 ml 525 ml 828 ml Intake Oral 350 ml 240 ml 420 ml IV Total 760 ml 315 ml 418 ml Drainage Total 30 ml 30 ml 10 ml # Voids 3 3 2 # Bowel Movements 0 0 1 Result Diagram: 05/28/16 0442 05/28/16 0442 Imaging Last Impressions Chest X-Ray 05/25/161927 Signed Impressions: Service Date/Time: Wednesday, May 25, 2016 19:40 - CONCLUSION: Normal examination for a patient of this age. Amrik Burkett MD Shoulder MRI 05/25/16 0000 Signed Impressions: Service Date/Time: Wednesday, May 25, 2016 21:58 - CONCLUSION: 1. Multiple too numerous to count soft tissue abscesses are seen in the soft tissues that surround the shoulder joint. The largest abscess appears to be positioned posterior to the shoulder and scapula in the soft tissues measuring at least 15.1 cm in length. 2. Multiple small abscesses are also seen along the left chest wall at the level of the axilla extending inferiorly. 3. No evidence of osteomyelitis is demonstrated at this time. Mark Anthony Mar MD Last 72 hours Impressions Chest X-Ray 05/25/161927 Signed Impressions: Service Date/Time: Wednesday, May 25, 2016 19:40 - CONCLUSION: Normal examination for a patient of this age. Amrik Burkett MD A/P Problem List: (1) Cellulitis Status: Acute Plan: - Pt has been having issues left shoulder pain in the April 2016. - Patient was diagnosed with osteoarthritis of the left A-C joint, shoulder impingement and rotator cuff tendinitis. - She was reportedly given injection into left AC joint by Dr Lee at [facility] on 04/29/16. - Patient was seen by local sports medicine physician Dr. Almazan and given Kenalog injection to post left shoulder on May 07, 2016. - Patient was seen by her PCP and had MRI without contrast of the left shoulder on 05/06/16 which noted degenerative changes at the AC jointm questionable mild biceps tenosynovitis - Patient was given pain medication and antibiotic including Augmentin and Medrol Dosepak. - She has had low-grade fever at home up to 100.5 over the last 2 days - MRI Left shoulder (05/26) --> Multiple too numerous to count soft tissue abscesses are seen in the soft tissues that surround the shoulder joint. The largest abscess appears to be positioned posterior to the shoulder and scapula in the soft tissues measuring at least 15.1 cm in length. Multiple small abscesses are also seen along the left chest wall at the level of the axilla extending inferiorly. No evidence of osteomyelitis is demonstrated at this time. - Pt was given Vancomycin in the ER and has been changed to oxacillin for MSSA - Orthopedic surgery following and pt was taken to the OR on 05/26/16 for arthrotomy and irrigation and debridement of the left shoulder and scapular area - ID following. -wound cx growing mssa and will need d/c home with iv abx. on oxacillin now. decide on timing for picc with ID -monitor lue swelling. c/o muscle spasms not relieved with most muscle relaxer. try soma. dose toradol. (2) Hypertension Status: Chronic Plan: - Stable. - Home meds continued - Clonidine prn. (3) Anxiety Status: Chronic Plan: - Xanax prn Aden Finley MD May 31, 2016 10:08
[2016-05-31 12:00] VITALS: BP 108/72; PULSE 100; RESP 17; TEMP 96.9; O2SAT 95
[2016-05-31] MEDS: CARISOPRODOL 350 MG TAB PO SCH (13:12)
[2016-05-31 16:00] VITALS: BP 108/64; PULSE 96; RESP 17; TEMP 97.7; O2SAT 94
--- NOTE | 2016-05-31 16:44 | MP ---
cc: ANDRIY GARZA DATE OF SURGERY: 05/26/2016. PREOPERATIVE DIAGNOSIS: 1. Left shoulder AC joint infection. 2. Left shoulder posterior scapular abscess. POSTOPERATIVE DIAGNOSIS: 1. Left shoulder AC joint infection. 2. Left shoulder posterior scapular abscess. OPERATIVE PROCEDURE PERFORMED: 1. Irrigation and debridement of left shoulder AC joint with arthrotomy. 2. Irrigation and debridement of deep posterior shoulder abscess. SURGEON: Andriy Garza MD. ASSIST: Viet Menjivar PA-C. SPECIMEN: Cultures x2. ESTIMATED BLOOD LOSS: 100 cc. ANESTHESIA: General. DRAINS: A 10 mm Kevin-Pineda drain. DESCRIPTION OF THE PROCEDURE IN DETAIL: Sarah is a 56-year-old female who presented to the emergency room with complaints of left shoulder pain. MRI revealed left shoulder AC joint infection as well as a posterior scapular abscess. Informed consent was obtained. The operative site was marked. She was brought to the operating room and placed on the operating room table. She was given IV sedation and general endotracheal anesthesia. She was placed in the lateral decubitus position. The left arm was prepped with alcohol followed by Hibiclens and draped in the sterile fashion. A time out procedure was performed. The procedure began with attention towards the AC joint. A two inch incision was made directly over the AC joint. Subcutaneous tissue was dissected with Bovie. There was a purulent pocket of fluid present. Cultures were obtained from this. The AC joint was now open. There was some thick cloudy fluid from the AC joint. The skin, subcutaneous tissue and fascia were sharply debrided with scalpel and rongeurs. Pulsatile lavage was now used to copiously irrigate the abscess region as well as the AC joint. At this point, the wound appeared to be clean. Next attention was turned to the posterior shoulder. A 4-inch incision was made over the posterior aspect of the shoulder. The subcutaneous tissue was dissected with Bovie. There was a thick layer of adipose tissue. Along the infraspinatus muscle, there was a large pocket of abscess and infected looking at fluid. The entire abscess was debrided. Curettes and rongeurs were used to debride the abscess. A drain was placed deep. Pulsatile lavage was used to thoroughly irrigate soft tissue. Incisions were now closed with 3-0 PDS, 3-0 nylon, and hayley. Sterile dressings were applied. The patient was transferred to recovery in stable condition. MD MINA Bustamante/CHELLE /3:28 PM /4:37 PM
[2016-05-31 20:00] VITALS: BP 130/76; PULSE 94; RESP 20; TEMP 98; O2SAT 96
[2016-06-01] VITALS: BP 126/82; PULSE 104; RESP 18; TEMP 98.6; O2SAT 95
[2016-06-01] MEDS: ZOLPIDEM TARTRATE 10 MG TAB PO PRN (00:50)
[2016-06-01] MEDS: oxyCODONE/ACETAMINOPHEN 5 MG/325 MG TAB PO PRN ×4 (00:50→22:01)
[2016-06-01] MEDS: CARISOPRODOL 350 MG TAB PO SCH ×4 (00:50→22:01)
[2016-06-01] MEDS: OXACILLIN INJ 2 GM in SODIUM CHLORIDE 0.9% INJ 100 ML IV SCH ×6 (01:06→22:01)
--- NOTE | 2016-06-01 07:20 | PD.ORT.PN ---
Subjective Subjective Remarks Pain control. No new complaints have not done first dressing changes as of yet Objective Vitals Vital Signs Date Time Temp Pulse Resp B/P Pulse Ox O2 Delivery O2 Flow Rate FiO2 06/01/16 00:00 98.6 104 18 126/82 95 05/31/16 20:00 98.0 94 20 130/76 96 05/31/16 16:00 97.7 96 17 108/64 94 05/31/16 12:00 96.9 100 17 108/72 95 05/31/16 08:00 96.4 101 17 125/77 92 I/O 05/31/16 05/31/16 05/31/16 06/01/16 06/01/16 06/01/16 07:00 15:00 23:00 07:00 15:00 23:00 Intake Total 838 ml 755 ml 480 ml 240 ml Output Total 10 ml 530 ml 480 ml 300 ml Balance 828 ml 225 ml 0 ml -60 ml Intake Oral 420 ml 450 ml 480 ml 240 ml IV Total 418 ml 305 ml Output Urine Total 500 ml 450 ml 300 ml Drainage Total 10 ml 30 ml 30 ml 0 ml # Voids 2 # Bowel Movements 1 1 1 0 Result Diagram: 05/28/1644105/28/16441 Objective Remarks Laying in bed, No acute distress LUE Dressing c/d/i, moderate swelling at shoulder, no new erythema Drain in place, clean drain site - 60 cc of drainage 24 hours +motor brachiorad, +sens hand, +nvi - Radial pulse 2/4 Assessment & Plan Assessment and Plan 1) I&D left shoulder/AC joint, drain placement, pod#6 - po pain meds as needed - daily dressing changes- Xeroform over incision -maintain drain. Will remove drain this week -monitor cultures and antibiotics to be managed by ID - MSSA. Currently on oxacillin. -PT/OT to improve ROM shoulder, weightbearing as tolerated -Will follow. JAMIE MATA PA-C Jun 01, 2016 07:20
[2016-06-01 08:00] VITALS: BP 126/76; PULSE 97; RESP 17; TEMP 98.8; O2SAT 93
[2016-06-01] MEDS: SODIUM CHLORIDE 0.9% FLUSH 5 ML FLUSH IVF SCH ×2 (09:00→22:02)
[2016-06-01] MEDS: amLODIPine BESYLATE 5 MG TAB PO SCH ×2 (09:54→22:01)
[2016-06-01] MEDS ORDERED: KETOROLAC TROMETHAMINE 30 MG/ML (IVP) VIAL IV PUSH ONE (10:45)
--- NOTE | 2016-06-01 10:45 | HHI.PR ---
Subjective Remarks pain better but she is extemley anxious about the left arm swelling. Objective Vitals heart reg lung cta abd s/nt ext left shoulder swelling/drain left ue swelling. Vital Signs Date Time Temp Pulse Resp B/P Pulse Ox O2 Delivery O2 Flow Rate FiO2 06/01/16 08:00 98.8 97 17 126/76 93 06/01/16 00:00 98.6 104 18 126/82 95 05/31/16 20:00 98.0 94 20 130/76 96 05/31/16 16:00 97.7 96 17 108/64 94 05/31/16 12:00 96.9 100 17 108/72 95 05/31/16 05/31/16 06/01/16 15:00 23:00 07:00 Intake Total 755 ml 480 ml 240 ml Output Total 530 ml 480 ml 300 ml Balance 225 ml 0 ml -60 ml Intake Oral 450 ml 480 ml 240 ml IV Total 305 ml Output Urine Total 500 ml 450 ml 300 ml Drainage Total 30 ml 30 ml 0 ml # Bowel Movements 1 1 0 Result Diagram: 05/28/16 0442 05/28/16 0442 Imaging Last Impressions Chest X-Ray 05/25/161927 Signed Impressions: Service Date/Time: Wednesday, May 25, 2016 19:40 - CONCLUSION: Normal examination for a patient of this age. Amrik Burkett MD Shoulder MRI 05/25/16 0000 Signed Impressions: Service Date/Time: Wednesday, May 25, 2016 21:58 - CONCLUSION: 1. Multiple too numerous to count soft tissue abscesses are seen in the soft tissues that surround the shoulder joint. The largest abscess appears to be positioned posterior to the shoulder and scapula in the soft tissues measuring at least 15.1 cm in length. 2. Multiple small abscesses are also seen along the left chest wall at the level of the axilla extending inferiorly. 3. No evidence of osteomyelitis is demonstrated at this time. Mark Anthony Mar MD Last 72 hours Impressions Chest X-Ray 05/25/161927 Signed Impressions: Service Date/Time: Wednesday, May 25, 2016 19:40 - CONCLUSION: Normal examination for a patient of this age. Amrik Burkett MD A/P Problem List: (1) Cellulitis Status: Acute Plan: - Pt has been having issues left shoulder pain in the April 2016. - Patient was diagnosed with osteoarthritis of the left A-C joint, shoulder impingement and rotator cuff tendinitis. - She was reportedly given injection into left AC joint by Dr Lee at [facility] on 04/29/16. - Patient was seen by local sports medicine physician Dr. Almazan and given Kenalog injection to post left shoulder on May 07, 2016. - Patient was seen by her PCP and had MRI without contrast of the left shoulder on 05/06/16 which noted degenerative changes at the AC jointm questionable mild biceps tenosynovitis - Patient was given pain medication and antibiotic including Augmentin and Medrol Dosepak. - She has had low-grade fever at home up to 100.5 over the last 2 days - MRI Left shoulder (05/26) --> Multiple too numerous to count soft tissue abscesses are seen in the soft tissues that surround the shoulder joint. The largest abscess appears to be positioned posterior to the shoulder and scapula in the soft tissues measuring at least 15.1 cm in length. Multiple small abscesses are also seen along the left chest wall at the level of the axilla extending inferiorly. No evidence of osteomyelitis is demonstrated at this time. - Pt was given Vancomycin in the ER and has been changed to oxacillin for MSSA - Orthopedic surgery following and pt was taken to the OR on 05/26/16 for arthrotomy and irrigation and debridement of the left shoulder and scapular area - ID following. -wound cx growing mssa and will need d/c home with iv abx. on oxacillin now. decide on timing for picc with ID today -monitor lue swelling. c/o muscle spasms not relieved with most muscle relaxer. soma and toradol helped. -she is very worried about the left arm swelling.....I doubt dvt..most likely some lymphedema related to left shoulder swelling..will check u/s elevate arm...?daniel wrap (2) Hypertension Status: Chronic Plan: - Stable. - Home meds continued - Clonidine prn. (3) Anxiety Status: Chronic Plan: - Xanax prn Aden Finley MD Jun 01, 2016 10:45
[2016-06-01 12:00] VITALS: BP 127/68; PULSE 94; RESP 18; TEMP 98.3; O2SAT 94
--- NOTE | 2016-06-01 12:49 | RADRPT ---
EXAM DATE/TIME: 06/01/2016 11:42 [facility] COMPARISON: No previous studies available for comparison. INDICATIONS : Left arm swelling. MEDICAL HISTORY : Hypertension. Osteoarthritis. Cervical degenerative disc disease. Left rotator cuff tendinitis. Anxiety. SURGICAL HISTORY : Left knee arthroscopy. Right total hip replacement. ENCOUNTER: Initial ACUITY: 1 week PAIN SCORE: 3/10 LOCATION: Left arm. FINDINGS: There is spontaneous flow documented in the brachial, basilic, cephalic, axillary, and subclavian vei ns. The vessels are compressible and augmentation response is documented. No filling defects are se en. The flow is phasic with respiration. Direction of flow in the jugular vein is caudal. CONCLUSION: Negative for deep venous thrombosis. Yamil Dotson MD FACR on June 01, 2016 at 12:47 Board Certified Radiologist. This report was verified electronically.
[2016-06-01 16:00] VITALS: BP 131/82; PULSE 92; RESP 18; TEMP 98.4; O2SAT 94
--- NOTE | 2016-06-01 17:43 | HHI.IDPN ---
Note Infectious Disease Note Patient has pain and swelling at the R shoulder. Afebrile. Wound culture has Staph aureus. Continue to have drainage fro the MAGGIE drain. PAST MEDICAL HISTORY Hypertension. ALLERGIES LORTAB. ANTIBIOTICS: Oxacillin SOCIAL HISTORY No tobacco. Occasional rare alcohol. No illicit drugs. The patient is . OBJ: Vital Signs Date Time Temp Pulse Resp B/P Pulse Ox O2 Delivery O2 Flow Rate FiO2 06/01/16 16:00 98.4 92 18 131/82 94 06/01/16 12:00 98.3 94 18 127/68 94 06/01/16 08:00 98.8 97 17 126/76 93 06/01/16 00:00 98.6 104 18 126/82 95 05/31/16 20:00 98.0 94 20 130/76 96 05/31/16 05/31/16 06/01/16 15:00 23:00 07:00 Intake Total 755 ml 480 ml 240 ml Output Total 530 ml 480 ml 300 ml Balance 225 ml 0 ml -60 ml Intake Oral 450 ml 480 ml 240 ml IV Total 305 ml Output Urine Total 500 ml 450 ml 300 ml Drainage Total 30 ml 30 ml 0 ml # Bowel Movements 1 1 0 Microbiology Date/Time Procedure Status Source Growth 05/26/16 14:54 Acid Fast Stain Received Other Pending 05/26/16 14:54 Mycobacterial Culture Received Other Pending 05/26/16 14:54 Fungal Smear - Final Resulted Other NO FUNGAL ELEMENTS SEEN. 05/26/16 14:54 Fungal Culture Resulted Other Pending 05/26/16 14:54 Gram Stain - Final Complete Wound Shoulder 05/26/16 14:54 Wound Culture - Final Complete Staphylococcus Aureus 05/26/16 15:00 Acid Fast Stain Received Other Pending 05/26/16 15:00 Mycobacterial Culture Received Other Pending 05/26/16 15:00 Gram Stain - Final Complete Wound Shoulder 05/26/16 15:00 Wound Culture - Final Complete Staphylococcus Aureus 05/26/16 15:00 Fungal Smear - Final Resulted Other NO FUNGAL ELEMENTS SEEN. 05/26/16 15:00 Fungal Culture Resulted Other Pending PHYSICAL EXAMINATION GENERAL: No acute distress. HEENT: Pupils are reactive to light without icterus. Oropharynx no visible lesions. NECK: Supple. No adenopathy. LUNGS: Clear breath sounds. HEART: Regular rate and rhythm without murmurs. No rubs or gallops. ABDOMEN: Bowel sounds present, soft. Nontender. EXTREMITIES: The left shoulder is swollen and there is a drainage catheter exiting the shoulder which has pink colored drainage. (+) tenderness over the entire shoulder. LUE swelling (2+). NEUROLOGICAL: No gross focal findings. SKIN: No rash. IMPRESSION 1. Multiple abscesses of the left shoulder. MSSA. The patient with recent injection of the left shoulder for treatment of pain. RECOMMENDATIONS Continue Oxacillin IV. PIC line ordered. She will need IV antibiotic on discharge. Camden Scott MD Jun 01, 2016 17:43
[2016-06-01 20:00] VITALS: BP 119/67; PULSE 94; RESP 20; TEMP 99.2; O2SAT 95
[2016-06-02] VITALS: BP 122/69; PULSE 90; RESP 20; TEMP 98.8; O2SAT 97
[2016-06-02] MEDS: ZOLPIDEM TARTRATE 10 MG TAB PO PRN (00:19)
[2016-06-02] MEDS: OXACILLIN INJ 2 GM in SODIUM CHLORIDE 0.9% INJ 100 ML IV SCH ×6 (02:48→21:08)
[2016-06-02] MEDS: CARISOPRODOL 350 MG TAB PO SCH ×3 (06:12→21:07)
--- NOTE | 2016-06-02 06:34 | PD.ORT.PN ---
Subjective Subjective Remarks Pain control. No new complaints Objective Vitals Vital Signs Date Time Temp Pulse Resp B/P Pulse Ox O2 Delivery O2 Flow Rate FiO2 06/02/16 00:03 18 06/02/16 00:03 18 06/02/16 00:00 98.8 90 20 122/69 97 06/01/16 20:00 99.2 94 20 119/67 95 06/01/16 16:00 98.4 92 18 131/82 94 06/01/16 12:00 98.3 94 18 127/68 94 06/01/16 08:00 98.8 97 17 126/76 93 I/O 06/01/16 06/01/16 06/01/16 06/02/16 06/02/16 06/02/16 07:00 15:00 23:00 07:00 15:00 23:00 Intake Total 240 ml 120 ml 640 ml Output Total 300 ml 430 ml 1010 ml Balance -60 ml -310 ml -370 ml Intake Oral 240 ml 120 ml 640 ml IV Total 0 ml Output Urine Total 300 ml 400 ml 1000 ml Drainage Total 0 ml 30 ml 10 ml # Bowel Movements 0 0 0 Objective Remarks Laying in bed, No acute distress LUE Dressing c/d/i, moderate swelling at shoulder, no new erythema Drain in place, clean drain site - 50 cc of drainage 24 hours +motor brachiorad, +sens hand, +nvi - Radial pulse 2/4 Assessment & Plan Assessment and Plan 1) I&D left shoulder/AC joint, drain placement, pod#7 - po pain meds as needed - daily dressing changes- Xeroform over incision -maintain drain. Will remove drain this week -monitor cultures and antibiotics to be managed by ID - MSSA. -PT/OT to improve ROM shoulder, weightbearing as tolerated JAMIE MATA PA-C Jun 02, 2016 06:34
[2016-06-02 08:00] VITALS: BP 123/70; PULSE 96; RESP 20; TEMP 95.8; O2SAT 94
[2016-06-02] MEDS: oxyCODONE/ACETAMINOPHEN 5 MG/325 MG TAB PO PRN ×2 (08:15→14:18)
[2016-06-02] MEDS: amLODIPine BESYLATE 5 MG TAB PO SCH ×2 (08:15→21:07)
[2016-06-02] MEDS: SODIUM CHLORIDE 0.9% FLUSH 5 ML FLUSH IVF SCH ×2 (08:16→21:08)
[2016-06-02 12:00] VITALS: BP 121/64; PULSE 104; RESP 20; TEMP 97.4; O2SAT 93
--- NOTE | 2016-06-02 14:30 | RADRPT ---
EXAM DATE/TIME: 06/02/2016 13:54 [facility] COMPARISON: CHEST SINGLE AP, May 25, 2016, 19:40. INDICATIONS : Post PICC line placement. MEDICAL HISTORY : None. SURGICAL HISTORY : None. ENCOUNTER: Subsequent ACUITY: 1 week PAIN SCORE: 0/10 LOCATION: Bilateral chest FINDINGS: A single view of the chest demonstrates the lungs to be symmetrically aerated without evidence of mas s, infiltrate or effusion. The cardiomediastinal contours are unremarkable. Osseous structures are intact. CONCLUSION: Normal examination. Right-sided PICC in good position. Suresh Cisneros MD on June 02, 2016 at 14:28 Board Certified Radiologist. This report was verified electronically.
--- NOTE | 2016-06-02 14:50 | HHI.PR ---
Subjective Remarks No new complaints. Pt interviewed and examined in the presence of the pt's nurse. Objective Vitals Vital Signs Date Time Temp Pulse Resp B/P Pulse Ox O2 Delivery O2 Flow Rate FiO2 06/02/16 08:00 95.8 96 20 123/70 94 06/02/16 00:03 18 06/02/16 00:03 18 06/02/16 00:00 98.8 90 20 122/69 97 06/01/16 20:00 99.2 94 20 119/67 95 06/01/16 16:00 98.4 92 18 131/82 94 06/01/16 06/01/16 06/02/16 15:00 23:00 07:00 Intake Total 120 ml 640 ml 715 ml Output Total 430 ml 1010 ml 710 ml Balance -310 ml -370 ml 5 ml Intake Oral 120 ml 640 ml 480 ml IV Total 0 ml 235 ml Output Urine Total 400 ml 1000 ml 700 ml Drainage Total 30 ml 10 ml 10 ml # Bowel Movements 0 0 0 Imaging Last Impressions Chest X-Ray 05/25/161927 Signed Impressions: Service Date/Time: Wednesday, May 25, 2016 19:40 - CONCLUSION: Normal examination for a patient of this age. Amrik Burkett MD Shoulder MRI 05/25/16 0000 Signed Impressions: Service Date/Time: Wednesday, May 25, 2016 21:58 - CONCLUSION: 1. Multiple too numerous to count soft tissue abscesses are seen in the soft tissues that surround the shoulder joint. The largest abscess appears to be positioned posterior to the shoulder and scapula in the soft tissues measuring at least 15.1 cm in length. 2. Multiple small abscesses are also seen along the left chest wall at the level of the axilla extending inferiorly. 3. No evidence of osteomyelitis is demonstrated at this time. Mark Anthony Mar MD Last 72 hours Impressions Chest X-Ray 05/25/161927 Signed Impressions: Service Date/Time: Wednesday, May 25, 2016 19:40 - CONCLUSION: Normal examination for a patient of this age. Amrik Burkett MD Objective Remarks GENERAL: This is a well-nourished, well-developed patient, in no apparent distress. CARDIOVASCULAR: Regular rate and rhythm without murmurs, gallops, or rubs. RESPIRATORY: Clear to auscultation. Breath sounds equal bilaterally. No wheezes , rales, or rhonchi. GASTROINTESTINAL: Abdomen soft, non-tender, nondistended. Normal active bowel sounds MUSCULOSKELETAL: Extremities without clubbing, cyanosis, or edema. NEURO: Alert & Oriented x4 to person, place, time, situation. Moves all ext x4 A/P Problem List: (1) Cellulitis Status: Acute Plan: - Pt has been having issues left shoulder pain in the April 2016. - Patient was diagnosed with osteoarthritis of the left A-C joint, shoulder impingement and rotator cuff tendinitis. - comgmt with Orthopedics and ID - She was reportedly given injection into left AC joint by Dr Lee at [facility] on 04/29/16. - Patient was seen by local sports medicine physician Dr. Almazan and given Kenalog injection to post left shoulder on May 07, 2016. - Patient was seen by her PCP and had MRI without contrast of the left shoulder on 05/06/16 which noted degenerative changes at the AC jointm questionable mild biceps tenosynovitis - Patient was given pain medication and antibiotic including Augmentin and Medrol Dosepak. - She has had low-grade fever at home up to 100.5 over the last 2 days prior to admission - MRI Left shoulder (05/26) --> Multiple too numerous to count soft tissue abscesses are seen in the soft tissues that surround the shoulder joint. The largest abscess appears to be positioned posterior to the shoulder and scapula in the soft tissues measuring at least 15.1 cm in length. Multiple small abscesses are also seen along the left chest wall at the level of the axilla extending inferiorly. No evidence of osteomyelitis is demonstrated at this time. - Pt was given Vancomycin in the ER and has been changed to oxacillin for MSSA - Orthopedic surgery following and pt was taken to the OR on 05/26/16 for arthrotomy and irrigation and debridement of the left shoulder and scapular area - continued drainage in - PICC placed (06/02/16) - case d/w Dr. Francis (06/02/16) - continue oxacillin for now. will likely convert to rocephin upon discharge - US LUE (06/01/16) --> negative for DVT - will d/w Orthopedic service, further imaging? (2) Hypertension Status: Chronic Plan: - Stable. - Home meds continued - Clonidine prn. (3) Anxiety Status: Chronic Plan: - Xanax prn Wili Jhaveri DO Jun 02, 2016 14:50
[2016-06-02 16:00] VITALS: BP 97/69; PULSE 91; RESP 20; TEMP 96.9; O2SAT 93
[2016-06-02 20:00] VITALS: BP 113/63; PULSE 90; RESP 20; TEMP 99.6; O2SAT 94
[2016-06-03] VITALS: BP 118/72; PULSE 86; RESP 20; TEMP 98.2; O2SAT 96
[2016-06-03] MEDS: oxyCODONE/ACETAMINOPHEN 5 MG/325 MG TAB PO PRN (01:15)
[2016-06-03] MEDS: OXACILLIN INJ 2 GM in SODIUM CHLORIDE 0.9% INJ 100 ML IV SCH ×6 (02:19→22:24)
[2016-06-03] MEDS: ZOLPIDEM TARTRATE 10 MG TAB PO PRN (02:23)
[2016-06-03] MEDS: CARISOPRODOL 350 MG TAB PO SCH ×3 (05:43→22:24)
[2016-06-03 08:00] VITALS: BP 130/61; PULSE 96; RESP 16; TEMP 98.8; O2SAT 93
[2016-06-03] MEDS: SODIUM CHLORIDE 0.9% FLUSH 5 ML FLUSH IVF SCH ×2 (09:00→22:25)
[2016-06-03] MEDS: amLODIPine BESYLATE 5 MG TAB PO SCH ×2 (09:00→22:24)
[2016-06-03 12:00] VITALS: BP 126/70; PULSE 93; RESP 19; TEMP 97.9; O2SAT 94
--- NOTE | 2016-06-03 15:14 | HHI.IDPN ---
Note Infectious Disease Note Patient notes less R shoulder pain. Wound culture has Staph aureus. Still having drainage. Afebrile. PAST MEDICAL HISTORY Hypertension. ALLERGIES LORTAB. ANTIBIOTICS: Oxacillin SOCIAL HISTORY No tobacco. Occasional rare alcohol. No illicit drugs. The patient is . OBJECTIVE: Vital Signs Date Time Temp Pulse Resp B/P Pulse Ox O2 Delivery O2 Flow Rate FiO2 06/03/16 12:00 97.9 93 19 126/70 94 06/03/16 08:00 98.8 96 16 130/61 93 06/03/16 02:23 18 06/03/16 00:00 98.2 86 20 118/72 96 06/02/16 22:57 18 06/02/16 20:00 99.6 90 20 113/63 94 06/02/16 16:00 96.9 91 20 97/69 93 06/02/16 06/02/16 06/03/16 15:00 23:00 07:00 Intake Total 468 ml 1070 ml 781 ml Output Total 23 ml 620 ml 810 ml Balance 445 ml 450 ml -29 ml Intake Oral 360 ml 720 ml 650 ml IV Total 108 ml 350 ml 131 ml Output Urine Total 3 ml 600 ml 800 ml Drainage Total 20 ml 20 ml 10 ml # Voids 1 # Bowel Movements 1 0 0 Microbiology Date/Time Procedure Status Source Growth 05/26/16 14:54 Acid Fast Stain Received Other Pending 05/26/16 14:54 Mycobacterial Culture Received Other Pending 05/26/16 14:54 Fungal Smear - Final Resulted Other NO FUNGAL ELEMENTS SEEN. 05/26/16 14:54 Fungal Culture Resulted Other Pending 05/26/16 14:54 Gram Stain - Final Complete Wound Shoulder 05/26/16 14:54 Wound Culture - Final Complete Staphylococcus Aureus 05/26/16 15:00 Acid Fast Stain Received Other Pending 05/26/16 15:00 Mycobacterial Culture Received Other Pending 05/26/16 15:00 Gram Stain - Final Complete Wound Shoulder 05/26/16 15:00 Wound Culture - Final Complete Staphylococcus Aureus 05/26/16 15:00 Fungal Smear - Final Resulted Other NO FUNGAL ELEMENTS SEEN. 05/26/16 15:00 Fungal Culture Resulted Other Pending PHYSICAL EXAMINATION GENERAL: No acute distress. HEENT: No icterus. NECK: Supple. No adenopathy. LUNGS: Clear. HEART: Regular rate and rhythm without murmurs. No rubs or gallops. ABDOMEN: Bowel sounds present, soft. Nontender. EXTREMITIES: The left shoulder has decreased swelling. serous drainage. Mild tenderness over the entire shoulder. NEUROLOGICAL: No gross focal findings. SKIN: No rash. IMPRESSION 1. Multiple abscesses of the left shoulder. MSSA. The patient with recent injection of the left shoulder for treatment of pain. RECOMMENDATIONS Continue Oxacillin IV. Awaiting Ortho clearance. IV antibiotics on discharge. Ceftriaxone 2gm IV daily x 2 weeks. Camden Scott MD Jun 03, 2016 15:14
--- NOTE | 2016-06-03 15:55 | HHI.PR ---
Subjective Remarks Pt had 50ml in MAGGIE drain overnight. Pt has NO new complaints. Objective Vitals Vital Signs Date Time Temp Pulse Resp B/P Pulse Ox O2 Delivery O2 Flow Rate FiO2 06/03/16 12:00 97.9 93 19 126/70 94 06/03/16 08:00 98.8 96 16 130/61 93 06/03/16 02:23 18 06/03/16 00:00 98.2 86 20 118/72 96 06/02/16 22:57 18 06/02/16 20:00 99.6 90 20 113/63 94 06/02/16 16:00 96.9 91 20 97/69 93 06/02/16 06/02/16 06/03/16 15:00 23:00 07:00 Intake Total 468 ml 1070 ml 781 ml Output Total 23 ml 620 ml 810 ml Balance 445 ml 450 ml -29 ml Intake Oral 360 ml 720 ml 650 ml IV Total 108 ml 350 ml 131 ml Output Urine Total 3 ml 600 ml 800 ml Drainage Total 20 ml 20 ml 10 ml # Voids 1 # Bowel Movements 1 0 0 Imaging Last Impressions Chest X-Ray 05/25/161927 Signed Impressions: Service Date/Time: Wednesday, May 25, 2016 19:40 - CONCLUSION: Normal examination for a patient of this age. Amrik Burkett MD Shoulder MRI 05/25/16 0000 Signed Impressions: Service Date/Time: Wednesday, May 25, 2016 21:58 - CONCLUSION: 1. Multiple too numerous to count soft tissue abscesses are seen in the soft tissues that surround the shoulder joint. The largest abscess appears to be positioned posterior to the shoulder and scapula in the soft tissues measuring at least 15.1 cm in length. 2. Multiple small abscesses are also seen along the left chest wall at the level of the axilla extending inferiorly. 3. No evidence of osteomyelitis is demonstrated at this time. Mark Atnhony Mar MD Last 72 hours Impressions Chest X-Ray 05/25/161927 Signed Impressions: Service Date/Time: Wednesday, May 25, 2016 19:40 - CONCLUSION: Normal examination for a patient of this age. Amrik Burkett MD Objective Remarks GENERAL: This is a well-nourished, well-developed patient, in no apparent distress. CARDIOVASCULAR: Regular rate and rhythm without murmurs, gallops, or rubs. RESPIRATORY: Clear to auscultation. Breath sounds equal bilaterally. No wheezes , rales, or rhonchi. GASTROINTESTINAL: Abdomen soft, non-tender, nondistended. Normal active bowel sounds MUSCULOSKELETAL: Extremities without clubbing, cyanosis, or edema. NEURO: Alert & Oriented x4 to person, place, time, situation. Moves all ext x4 A/P Problem List: (1) Cellulitis Status: Acute Plan: - Pt has been having issues left shoulder pain in the April 2016. - Patient was diagnosed with osteoarthritis of the left A-C joint, shoulder impingement and rotator cuff tendinitis. - comgmt with Orthopedics and ID - She was reportedly given injection into left AC joint by Dr Lee at [facility] on 04/29/16. - Patient was seen by local sports medicine physician Dr. Almazan and given Kenalog injection to post left shoulder on May 07, 2016. - Patient was seen by her PCP and had MRI without contrast of the left shoulder on 05/06/16 which noted degenerative changes at the AC jointm questionable mild biceps tenosynovitis - Patient was given pain medication and antibiotic including Augmentin and Medrol Dosepak. - She has had low-grade fever at home up to 100.5 over the last 2 days prior to admission - MRI Left shoulder (05/26) --> Multiple too numerous to count soft tissue abscesses are seen in the soft tissues that surround the shoulder joint. The largest abscess appears to be positioned posterior to the shoulder and scapula in the soft tissues measuring at least 15.1 cm in length. Multiple small abscesses are also seen along the left chest wall at the level of the axilla extending inferiorly. No evidence of osteomyelitis is demonstrated at this time. - Pt was given Vancomycin in the ER and has been changed to oxacillin for MSSA - Orthopedic surgery following and pt was taken to the OR on 05/26/16 for arthrotomy and irrigation and debridement of the left shoulder and scapular area - continued drainage in MAGGIE - PICC placed (06/02/16) - case d/w Dr. Francis (06/02/16) - continue oxacillin for now. will likely convert to rocephin upon discharge - US LUE (06/01/16) --> negative for DVT - Case d/w Orthopedic Service (06/03/16) - continue MAGGIE drain until drainage below 30ml - continue above treatment plan (2) Hypertension Status: Chronic Plan: - Stable. - Home meds continued - Clonidine prn. (3) Anxiety Status: Chronic Plan: - Xanax prn Wili Jhaveri DO Jun 03, 2016 15:55
[2016-06-03 20:00] VITALS: BP 118/75; PULSE 95; RESP 18; TEMP 97.6; O2SAT 96
[2016-06-03 23:53] VITALS: BP 120/74; PULSE 92; RESP 20; TEMP 98.6; O2SAT 96
[2016-06-04] MEDS: ZOLPIDEM TARTRATE 10 MG TAB PO PRN (02:19)
[2016-06-04] MEDS: OXACILLIN INJ 2 GM in SODIUM CHLORIDE 0.9% INJ 100 ML IV SCH ×3 (02:20→09:27)
[2016-06-04] MEDS: oxyCODONE/ACETAMINOPHEN 5 MG/325 MG TAB PO PRN (02:20)
[2016-06-04 04:00] VITALS: BP 111/59; PULSE 97; RESP 20; TEMP 98.6; O2SAT 95
[2016-06-04] MEDS: CARISOPRODOL 350 MG TAB PO SCH ×2 (06:45→14:06)
--- NOTE | 2016-06-04 07:38 | PD.ORT.PN ---
Subjective Subjective Remarks POD 9 s/p I&D left shoulder doing well. pain controlled. no complaints. PICC line placed Objective Vitals Vital Signs Date Time Temp Pulse Resp B/P Pulse Ox O2 Delivery O2 Flow Rate FiO2 06/04/16 04:00 98.6 97 20 111/59 95 06/03/16 23:53 98.6 92 20 120/74 96 06/03/16 20:00 97.6 95 18 118/75 96 06/03/16 12:00 97.9 93 19 126/70 94 06/03/16 08:00 98.8 96 16 130/61 93 I/O 06/03/16 06/03/16 06/03/16 06/04/16 06/04/16 06/04/16 07:00 15:00 23:00 07:00 15:00 23:00 Intake Total 781 ml 480 ml 1570 ml 390 ml Output Total 810 ml 400 ml 15 ml 15 ml Balance -29 ml 80 ml 1555 ml 375 ml Intake Oral 650 ml 240 ml 240 ml 240 ml IV Total 131 ml 240 ml 1330 ml 150 ml Output Urine Total 800 ml 400 ml Drainage Total 10 ml 15 ml 15 ml # Voids 2 2 # Bowel Movements 0 0 1 1 Other Results 06/03/16 06/03/16 06/04/16 15:00 23:00 07:00 Intake Total 480 ml 1570 ml 390 ml Output Total 400 ml 15 ml 15 ml Balance 80 ml 1555 ml 375 ml Intake Oral 240 ml 240 ml 240 ml IV Total 240 ml 1330 ml 150 ml Output Urine Total 400 ml Drainage Total 15 ml 15 ml # Voids 2 2 # Bowel Movements 0 1 1 Objective Remarks Laying in bed, No acute distress LUE Dressing c/d/i, moderate swelling at shoulder, no new erythema Drain in place, clean drain site - 15 cc of drainage 24 hours +motor brachiorad, +sens hand, +nvi - Radial pulse 2/4 Assessment & Plan Assessment and Plan 1) I&D left shoulder/AC joint, drain placement, pod#9 - po pain meds as needed - daily dressing changes- Xeroform over incision -drain removed at bedside. daily dressings changes of drain site -monitor cultures and antibiotics to be managed by ID - MSSA. -PT/OT to improve ROM shoulder, weightbearing as tolerated -Ortho cleared for discharge home when home IV Abx arranged -f/u in office with Brandt or [facility] in 1 week Bipin Coates Jun 04, 2016 07:38
[2016-06-04] MEDS ORDERED: PERC5TAB12 PO (07:41)
[2016-06-04 08:00] VITALS: BP 166/65; PULSE 93; RESP 16; TEMP 97.2; O2SAT 97
[2016-06-04] MEDS: SODIUM CHLORIDE 0.9% FLUSH 5 ML FLUSH IVF SCH (09:00)
[2016-06-04] MEDS: amLODIPine BESYLATE 5 MG TAB PO SCH (09:25)
[2016-06-04 12:00] VITALS: BP 122/66; PULSE 94; RESP 16; TEMP 97; O2SAT 95
--- NOTE | 2016-06-04 13:46 | HHI.FF ---
Face to Face Verification Diagnosis: (1) Acromioclavicular joint arthritis (2) Cellulitis (3) Anxiety (4) Hypertension Home Health Nursing Order: Medical education Signs/symptoms of disease process Medication education-adverse effect Nursing assessment with vital signs IV medication administration Instructions: Rocephin 2g IV x 14days I have seen patient Sarah Gentile on 06/04/16. My clinical findings support the need for the requested home health care services because: Ltd mobility - disease progression Med compliance is questionable Need for psychosocial assistance I certify that my clinical findings support that this patient is homebound because: Unsafe to leave home unassisted Need for psychosocial assistance Unable to use public transportation Wili Jhaveri DO Jun 04, 2016 13:46
--- NOTE | 2016-06-04 13:59 | HHI.FF ---
Infusion Therapy Location of Infusion Therapy: Home Health Care IV Infusion Order Patient Information Patient Weight 88.6 kg Diagnosis: Diagnosis Abscess L. shoulder Coded Allergies: Lortab (Verified Allergy, Mild, NAUSEA, 05/25/16) Administer Medication Ceftriaxone 2 grams IV q 24 hours Stop Treatment: Jun 18, 2016 Additional Information Venous access: PICC Line Additional Instructions [x] Peripheral flush and dressing changes per protocol [x] Implanted port and central liner installer: * Implanted port: 10 ml Normal Saline followed by 5 ml Heparin 100 units/ml Heparin flush after each use and monthly to maintain. [] May leave port accessed during therapy. [] May leave peripheral site accessed for duration of therapy. [x] If patient has SOB or respiratory distress, check oxygen saturation. If less than 90% or clinical signs of respiratory distress, administer oxygen at 2 L/min. via nasal cannula and notify physician. [x] Anaphylaxis/Reaction orders: * Stop infusion. * Keep IV line open with saline flush. * Notify physician. * Monitor vital signs every 15 minutes until symptoms resolve. * Check Oxygen saturation; Oxygen at 2 L/min. via nasal cannula if less than 90% or clinical signs of respiratory distress. * Administer diphenhydramine (Benadryl) 25 mg IV STAT, (unless patient has received as pre-med). May repeat once, if necessary. * Solu-Cortef 250 mg IVP over 30-60 seconds, use 100 mg vials for each dissolution. * Epinephrine (1mg/1 ml) 0.3 mg subcutaneously or IVP now with any signs of respiratory distress. * Check with physician for new additional pre-med orders if patient is re- challenged or re-treated. [x] May remove PICC line when treatment complete, after confirming with Physician. [x] If the patient is admitted to the hospital, the ED, or transferred via [facility] , complete transfer form including medication reconciliation order sheet. Laboratory Tests Weekly Labs: Camden Hsieh MD Jun 04, 2016 13:59
[2016-06-04] MEDS ORDERED: ROCE1INJ3 IV (14:10)
--- NOTE | 2016-06-04 14:14 | HHI.DS ---
Discharge Summary Admission Date May 25, 2016 at 21:24 Discharge Date: Jun 04, 2016 Admitting Diagnosis left shoulder cellulitis. Rule out septic joint. (1) Cellulitis Diagnosis: Principal (2) Hypertension Diagnosis: Principal (3) Anxiety Diagnosis: Principal Consultants Dr. Andriy Carlton, Orthopedic Surgeon Procedures OR on 05/26/16 for arthrotomy and irrigation and debridement of the left shoulder and scapular area Brief History 56-year-old female complains of left shoulder pain. Patient started having left shoulder pain in the April 2016. Patient was seen by personal physician and was diagnosed with osteoarthritis of the left A-C joint, shoulder impingement and rotator cuff tendinitis. She was reportedly given injection into left AC joint by Dr Lee at [facility] on 04/29/16. Patient was seen by local sports medicine physician Dr. Almazan and given Kenalog injection to post left shoulder on May 07, 2016. Patient was seen by personal physician and had MRI and x-ray done of the left shoulder which mistreated before meals osteoarthritis and possible biceps tenosynovitis on May 06, 2016. Patient was given pain medication and antibiotic including Augmentin and Medrol Dosepak. Patient states that she has low-grade fever at home up to 100.5 over the last 2 days.. Patient was seen by personal physician again and referred to the ED to see Dr. Enriquez orthopedist consultation for possible septic joint. Patient states the pain is severe sharp pain localized to left shoulder. Patient denies any pain radiation. Patient states that the pain is worse with left shoulder movement. On a scale of 1-10 the pain is a 10. Denies chest pain or shortness of breath. Imaging Last Impressions Chest X-Ray 06/02/16 0000 Signed Impressions: Service Date/Time: Thursday, June 02, 2016 13:54 - CONCLUSION: Normal examination. Right-sided PICC in good position. Suresh Cisneros MD Upper Extremity Ultrasound 06/01/16 0000 Signed Impressions: Service Date/Time: Wednesday, June 01, 2016 11:42 - CONCLUSION: Negative for deep venous thrombosis. Yamil Dotson MD FACR Shoulder MRI 05/25/16 0000 Signed Impressions: Service Date/Time: Wednesday, May 25, 2016 21:58 - CONCLUSION: 1. Multiple too numerous to count soft tissue abscesses are seen in the soft tissues that surround the shoulder joint. The largest abscess appears to be positioned posterior to the shoulder and scapula in the soft tissues measuring at least 15.1 cm in length. 2. Multiple small abscesses are also seen along the left chest wall at the level of the axilla extending inferiorly. 3. No evidence of osteomyelitis is demonstrated at this time. Mark Anthony Mar MD PE at Discharge GENERAL: This is a well-nourished, well-developed patient, in no apparent distress. CARDIOVASCULAR: Regular rate and rhythm without murmurs, gallops, or rubs. RESPIRATORY: Clear to auscultation. Breath sounds equal bilaterally. No wheezes , rales, or rhonchi. GASTROINTESTINAL: Abdomen soft, non-tender, nondistended. Normal active bowel sounds MUSCULOSKELETAL: Extremities without clubbing, cyanosis, or edema. NEURO: Alert & Oriented x4 to person, place, time, situation. Moves all ext x4 Hospital Course (1) Cellulitis Status: Acute Plan: - Pt has been having issues left shoulder pain in the April 2016. - Patient was diagnosed with osteoarthritis of the left A-C joint, shoulder impingement and rotator cuff tendinitis. - comgmt with Orthopedics and ID - She was reportedly given injection into left AC joint by Dr Lee at [facility] on 04/29/16. - Patient was seen by local sports medicine physician Dr. Almazan and given Kenalog injection to post left shoulder on May 07, 2016. - Patient was seen by her PCP and had MRI without contrast of the left shoulder on 05/06/16 which noted degenerative changes at the AC joint questionable mild biceps tenosynovitis - Patient was given pain medication and antibiotic including Augmentin and Medrol Dosepak. - She has had low-grade fever at home up to 100.5 over the last 2 days prior to admission - MRI Left shoulder (05/26) --> Multiple too numerous to count soft tissue abscesses are seen in the soft tissues that surround the shoulder joint. The largest abscess appears to be positioned posterior to the shoulder and scapula in the soft tissues measuring at least 15.1 cm in length. Multiple small abscesses are also seen along the left chest wall at the level of the axilla extending inferiorly. No evidence of osteomyelitis is demonstrated at this time. - Pt was given Vancomycin in the ER and has been changed to oxacillin for MSSA - Orthopedic surgery following and pt was taken to the OR on 05/26/16 for arthrotomy and irrigation and debridement of the left shoulder and scapular area - MAGGIE drain removed 06/04/16 - PICC placed (06/02/16) - case d/w Dr. Francis (06/04/16) - oxacillin (05/29/16 - 06/04/16). Changed to Rocephin 2g upon discharge - US PALOMINO (06/01/16) --> negative for DVT - Case d/w Orthopedic Service (06/03/16) - pt to f/u with Dr. Andriy Carlton in 1 week - Pt asked about her cats which usually sleep on her bed. I did advise that she NOT sleep with her cats until her shoulder infection has fully resolved. - I called [facility] Case Mgmt (06/04/16) to request that pt be enrolled in [facility] Complex Case Mgmt program. Pt may require some reminders to keep all upcoming appointments. (2) Hypertension Status: Chronic Plan: - Stable. - continue home medications (3) Anxiety Status: Chronic Plan: - Xanax prn Pt Condition on Discharge: Stable Discharge Disposition: Disch w/ Home Health Serv Discharge Instructions DIET: Follow Instructions for: Heart Healthy Diet Activities you can perform: Regular-No Restrictions Other Activity Instructions: NO lifting ,over 5 pounds, with right arm Follow up Referrals: Orthopedics - 1 Week @ [facility] with Andriy Carlton MD PCP Follow-up - [address] Yamil [address] [facility]/ with [facility] New Medications: Ceftriaxone Inj (Rocephin Inj) 1 Gm Inj 2 GM IV Q24H Infection Days 14 Ref 0 VIAL Oxycodone-Acetaminophen (Percocet) 5-325 mg Tab 1 TAB PO Q4H PRN PAIN #42 Ref 0 TAB Continued Medications: Alprazolam (Xanax) 0.25 Mg Tab 0.25 MG PO Q4H PRN ANXIETY Ref 0 TAB Amlodipine (Norvasc) 5 Mg Tab 5 MG PO BID Blood Pressure Management #30 Ref 0 TAB Oxycodone-Acetaminophen (Percocet) 10-325 mg Tab 1 TAB PO Q4H PRN PAIN Ref 0 TAB Tizanidine (Zanaflex) 4 Mg Tab 4 MG PO TID Muscle Spasm Ref 0 TAB Zolpidem (Ambien) 10 Mg Tab 10 MG PO HS PRN INSOMNIA Ref 0 TAB Wili Jhaveri DO Jun 04, 2016 14:14
--- NOTE | 2016-06-04 14:22 | HHI.DCPOC ---
Discharge Care Plan Diagnosis: (1) Acromioclavicular joint arthritis (2) Anxiety (3) Cellulitis (4) Hypertension Goals to Promote Your Health * To prevent worsening of your condition and complications * To maintain your health at the optimal level Directions to Meet Your Goals Take your medications as prescribed Follow your dietary instruction Follow activity as directed Keep your appointments as scheduled Take your immunizations and boosters as scheduled If your symptoms worsen call your PCP, if no PCP go to Urgent Care Center or Emergency Room Smoking is Dangerous to Your Health. Avoid second hand smoke Call the 24-hour hour crisis hotline for domestic abuse at Wili Jhaveri DO Jun 04, 2016 14:22
[2016-06-04] MEDS ORDERED: cefTRIAXone INJ 2,000 MG in SODIUM CHLORIDE 0.9% INJ 100 ML IV ONE (15:00)
[2016-06-04 16:00] VITALS: BP 120/64; PULSE 94; RESP 16; TEMP 97.4; O2SAT 95
== END 2016-06-04 18:09 | disposition home health service (06) | DRG 464 ==
LOC: NEPA 15:53 → NEDA 21:24 → NEDH 05-26 02:41 → N07A 05-26 18:32
PROVIDERS: ADMIT Hospitalist; ATTEND Hospitalist
PROC: 0R9 Upper Joints, Drainage (ICD-10-PCS; 2016-05-26)
PROC: 0JBF0ZZ Excision of Left Upper Arm Subcutaneous Tissue and Fascia, Open Approach (ICD-10-PCS; principal; 2016-05-26 14:14)
DX: M00.012 Staphylococcal arthritis, left shoulder (principal); L02.414 Cutaneous abscess of left upper limb; I10 Essential (primary) hypertension; M25.512 Pain in left shoulder; M75.42 Impingement syndrome of left shoulder; M50.30 Other cervical disc degeneration, unspecified cervical region; F41.9 Anxiety disorder, unspecified; Z96.641 Presence of right artificial hip joint; M62.838 Other muscle spasm; B95.61 Methicillin susceptible Staphylococcus aureus infection as the cause of diseases classified elsewhere; M19.012 Primary osteoarthritis, left shoulder; Z87.891 Personal history of nicotine dependence
CPT/HCPCS: 36569; 71010; 73223; 76937; 80048; 80053; 80202; 81001; 83735; 85025; 85610; 85652; 85730; 86140; 86403; 87015; 87040; 87070; 87102; 87116; 87147; 87176; 87186; 87205; 87206; 93005; 93971; 94150; 94640; 94664; 96361; 96374; 96375; A9579; J0131; J0690; J0696; J1100; J1580; J1642; J1885; J2250; J2270; J2405; J2700; J2710; J3010; J3370; J7030; J7040; J7050; J7613

== ENCOUNTER 2017-10-11 15:33 | Emergency (ER) | payer BC, OTHER ==
[~2017-10-11] VITALS: Ht 162.6 cm; Wt 85.0 kg
[~2017-10-11 15:33] MED LIST changes: +ALPR.25 PO; -AMBI10TA; +AMBI10TA PO; +AMLO5 PO; -CYCL-36; +PERC10TA27 PO; +PERC5TAB12 PO; +ROCE1INJ3 IV; +TIZA4 PO; -TRAM50; -WARF7.5; -Z.0.NO CURRENT MEDS
[2017-10-11 15:45] VITALS: BP 157/89; PULSE 102; RESP 16; TEMP 98.1; O2SAT 97
--- NOTE | 2017-10-11 18:56 | RADRPT ---
EXAM DATE: 10/11/2017 6:10 PM EDT AGE/SEX: 57 years / Female INDICATIONS: Left knee pain after fall. CLINICAL DATA: This is the patient's initial encounter. Patient reports that signs and symptoms have been present for 1 day and indicates a pain score of 8/10. MEDICAL/SURGICAL HISTORY: Arthritis. None. COMPARISON: No prior exams available for comparison. FINDINGS: No definite fractures, or dislocations are identified. No definite lytic or sclerotic les ion is seen. There is tricompartment osteoarthritis to a slight degree worse in the medial compartmen t. CONCLUSION: Osteoarthritis. Electronically signed by: Cinthya Rodriguez MD 10/11/2017 6:55 PM EDT
[2017-10-11] MEDS ORDERED: ONDANSETRON ODT 4 MG TAB PO ONE (19:30)
[2017-10-11] MEDS ORDERED: KETOROLAC TROMETHAMINE 60 MG/2 ML (IM) VIAL IM ONE (19:30)
[2017-10-11] MEDS ORDERED: DICL75TA PO (19:30)
[2017-10-11] MEDS ORDERED: MORPHINE SULFATE 4 MG/ML INJ IM ONE (19:30)
[2017-10-11] MEDS ORDERED: PERC5TAB12 PO (19:30)
--- NOTE | 2017-10-11 20:01 | PD ---
HPI Chief Complaint: Injury Time Seen by Provider: 19:19 Travel History International Travel<30 days: No Contact w/Intl Traveler<30days: No Traveled to known affect area: No History of Present Illness HPI 57-year-old female who presents to the ED for evaluation of left knee injury. Per patient today all she did was bend down to brain picker something and she felt a pop on her knee and ever since she has been having severe pain on her left knee and cannot completely extend it without significant pain. Per patient feels like it is unsteady. Per patient she has little pain when she puts weight on it. She does have a history of a meniscal repair years ago on this knee. She has a history of multiple joint replacements in the past as well as arthritis. She denies any falls into the knee. She states that the pain is mostly to the posterior and medial aspect of the knee but also the lateral. Denies any recent travel. No injury. She currently does not follow with orthopedic doctor. Denies any other medical issues. No chest pain or shortness of breath. Per patient the pain is 10 out of 10 and gets worse with any movement of the knee. Keep in it bent feels better. PFSH Past Medical History Cancer: No Diminished Hearing: No Gastrointestinal Disorders: No Genitourinary: No Hypertension: Yes Neurologic: No Respiratory: No ?: Not Social History Alcohol Use: Yes (rarely ) Tobacco Use: No Substance Use: No Allergies-Medications (Allergen,Severity, Reaction): Coded Allergies: acetaminophen (Unverified Allergy, Mild, NAUSEA, 10/11/17) hydrocodone (Unverified Allergy, Mild, NAUSEA, 10/11/17) Reported Meds & Prescriptions Reported Meds & Active Scripts Active Percocet (Oxycodone-Acetaminophen) 5-325 mg Tab 1 Tab PO Q6H PRN Diclofenac Sodium DR (Diclofenac Sodium) 75 Mg Tabdr 75 Mg PO BID PRN Rocephin Inj (Ceftriaxone Sodium) 1 Gm Inj 2 Gm IV Q24H 14 Days Percocet (Oxycodone-Acetaminophen) 5-325 mg Tab 1 Tab PO Q4H PRN Reported Percocet (Oxycodone-Acetaminophen) 10-325 mg Tab 1 Tab PO Q4H PRN Zanaflex (Tizanidine HCl) 4 Mg Tab 4 Mg PO TID Xanax (Alprazolam) 0.25 Mg Tab 0.25 Mg PO Q4H PRN Norvasc (Amlodipine Besylate) 5 Mg Tab 5 Mg PO BID Ambien (Zolpidem Tartrate) 10 Mg Tab 10 Mg PO HS PRN Review of Systems Except as stated in HPI: all other systems reviewed are Neg Physical Exam Narrative GENERAL: SKIN: Warm and dry. HEAD: Atraumatic. Normocephalic. EYES: Pupils equal and round. No scleral icterus. No injection or drainage. ENT: No nasal bleeding or discharge. Mucous membranes pink and moist. NECK: Trachea midline. No JVD. CARDIOVASCULAR: Regular rate and rhythm. RESPIRATORY: No accessory muscle use. Clear to auscultation. Breath sounds equal bilaterally. GASTROINTESTINAL: Abdomen soft, non-tender, nondistended. Hepatic and splenic margins not palpable. MUSCULOSKELETAL: Extremities without clubbing, cyanosis, or edema. No obvious deformities. Full range of motion of the upper and lower extremities bilaterally. 2+ pulses bilaterally. Tender to palpation medial and posterior aspect of the knee. Worsening with extension. Able to extend and flex the knee but with a lot of pain with extension. 2+ pulses bilaterally. Ligaments appear to be intact. NEUROLOGICAL: Awake and alert. No obvious cranial nerve deficits. Motor grossly within normal limits. Five out of 5 muscle strength in the arms and legs. Normal speech. PSYCHIATRIC: Appropriate mood and affect; insight and judgment normal. Data Data Last Documented VS Vital Signs Date Time Temp Pulse Resp B/P (MAP) Pulse Ox O2 Delivery O2 Flow Rate FiO2 10/11/17 15:45 98.1 102 16 157/89 (111) 97 Orders Orders Knee, Complete (4vws) (10/11/17 ) Ketorolac Inj (Toradol Inj) (10/11/17 19:30) Morphine Inj (Morphine Inj) (10/11/17 19:30) Ondansetron Odt (Zofran Odt) (10/11/17 19:30) Splint Or Brace Apply/Monitor (10/11/17 19:31) Ed Discharge Order (10/11/17 19:56) [facility] Medical Decision Making Medical Screen Exam Complete: Yes Emergency Medical Condition: Yes Medical Record Reviewed: Yes Interpretation(s) Last Impressions Knee X-Ray 10/11/17 0000 Signed Impressions: CONCLUSION: Osteoarthritis. Differential Diagnosis Meniscal injury versus osteoarthritis versus fracture versus ligamental tear Narrative Course 57-year-old female that presents to the ED for evaluation of right knee pain. Patient was properly examined and was found to have signs and symptoms consistent with appears to be internal derangement of the knee. X-ray was ordered. X-ray showed no sign of bony injury. Patient was reassured at this time. Patient does have a little pain with movement. Patient was given IM injections of pain medication and anti-inflammatories. Patient will be put on brace and crutches. I strongly recommend that she follows with orthopedic doctor for further evaluation. I highly suspect that this may be a meniscal or ligamental injury to the knee and she could require surgical intervention but this will have to be done outpatient. Patient agrees and understands. Patient was given a short prescription for Percocet and diclofenac sodium. Told to apply ice or warm compresses. Close follow-up with PCP. Given note for work. See ED if worsening symptoms. Diagnosis Primary Impression: Internal derangement of knee Qualified Codes: M23.92 - Unspecified internal derangement of left knee Referrals: Kevin Henry MD, Jeffrey W MD McCall, Todd Andrew MD Rhodes, J. Richard Richard MD Patient Instructions: Narcotic given in the ED, General Instructions Departure Forms: Tests/Procedures, Work Release Enter return to work date: Oct 14, 2017 Additional Instructions: Take medications as prescribed. Follow-up with PCP or ortho. See ED for any worsening symptoms. Do not drink or drive while taking pain medication. Apply ice or heat as needed for pain Med/Other Pt SpecificInfo: Prescription(s) given, Orthopedic Instructions Scripts Oxycodone-Acetaminophen (Percocet) 5-325 mg Tab 1 TAB PO Q6H Y for PAIN, #10 TAB 0 Refills Prov: Kate Kim DO 10/11/[address] (Diclofenac Sodium DR) 75 Mg Tabdr 75 MG PO BID Y for PAIN SCALE 1 TO 10, #30 TAB 0 Refills Prov: Kate Kim DO 10/11/17 Disposition: 01 DISCHARGE HOME Condition: Stable Maikel Enriquez Oct 11, 2017 20:01
== END 2017-10-11 21:30 | disposition home or self-care (01) ==
LOC: NEPK 15:33
DX: M23.92 Unspecified internal derangement of left knee (principal); I10 Essential (primary) hypertension; M19.90 Unspecified osteoarthritis, unspecified site
CPT/HCPCS: 73564; 96372; 99283; E0113; J1885; J2270; L1830